=== PATIENT | female | born 1940 | race Caucasian/White ===

== ENCOUNTER 2019-02-19 11:10 | Day surgery (SDC) | payer MEDICARE, BC ==
[2019-02-17 10:33] VITALS: BMI 33.3
[~2019-02-19 11:10] MED LIST: CLINDAMYCIN 600 MG in SODIUM CHLORIDE 0.9% IRRIGATIO 250 ML IRRIGATION ONE; CLINDAMYCIN 900 MG in DEXTROSE 5% IN WATER 50 ML IVPB ONE; HYDROmorphone 0.5 MG/0.5 ML SYRINGE IVP PRN
[2019-02-19 12:25] LABS: Glucose,Whole Blood 98 mg/dL (75-99)
[2019-02-19] MEDS: SODIUM CHLORIDE 0.9% 1,000 ML IV SCH (12:25)
[2019-02-19 12:46] LABS: INR 2.5 (<1.2); Prothrombin Time 23.9 sec (9.0-12.0)
[2019-02-19] MEDS ORDERED: ISOPROTERENOL 250 MCG/1.25 ML SYR IV ONE (15:59)
[2019-02-19] MEDS ORDERED: MIDAZOLAM 2 MG/2 ML VIAL ONE (15:59)
[2019-02-19] MEDS ORDERED: fentaNYL (PF) 50 MCG/ML 2 ML AMP ONE (15:59)
[2019-02-19] MEDS ORDERED: PROPOFOL 10 MG/ML 20 ML VIAL IV ONE (15:59)
--- NOTE | 2019-02-19 16:07 | P.HPCAR ---
History of Present Illness This is Earline Daniels PA-C dictating an H&P on this patient The patient was interviewed and examined by me as well as by Dr. Del Cid Case discussed with Dr. Del Cid and he agrees with the plan of care IMPRESSION / ASSESSMENT: symptomatic frequent NSVT Hypertrophic cardiomyopathy CAD status post CABG Atrial fibrillation on Coumadin Hypertension Dyslipidemia Diabetes PLAN: Proceed with diagnostic EP study and further management as indicated based on findings HPI Patient is a 78-year-old female with a past medical history of CAD status post CABG, hypertrophic cardiomyopathy, atrial fibrillation, hypertension, dyslipidemia, and diabetes who presents for evaluation and management of NSVT. Patient has recurrent palpitations and underwent an event monitor which showed frequent episodes of nonsustained ventricular tachycardia of different morphologies. Her most recent stress test was negative for reversible ischemia. Her most recent echocardiogram showed EF 55%, moderate concentric hypertrophy, thickened intraventricular septum consistent with hypertrophic cardiomyopathy, hypokinesis of the inferior wall from the base to the mid wall. Patient seen and examined resting comfortably in bed. Denies any chest pain or shortness of breath. Has not had any palpitations on the last few days. No syncope. No re cent infections, fevers, chills, cough. She can lie flat comfortably, no orthopnea or PND. ROS: No fevers, chills or rigors, no cough, phlegm or expectoration, no nausea, vomiting or diarrhea, no hematuria, dysuria, no musculoskeletal complaints, no strokes or seizures, no skin lesions. EXAMINATION: Temperature 98.0F, pulse 64, respirations 16, blood pressure 13, oxygen saturation 97 room patient seen and examined resting comfortably in bed, in no acute distress Lungs clear to auscultation bilaterally. No wheezing, rhonchi or crackles Heart is regular, systolic murmur noted, no rubs or gallops No elevated JVD Trace lower extremity edema bilaterally Abdomen soft and nontender to palpation REVIEW OF LABS, ECG & MEDICAL DATA INR is therapeutic 2.5 Physical Exam Vitals: Vital Signs Temp Pulse Resp BP Pulse Ox 02/19/19 12:40 98.0 F 64 16 164/73 97 Past Medical History Past Medical History: Atrial Fibrillation, CVA/TIA, Diabetes Mellitus, Eye Disorder, Hyperlipidemia, Hypertension Additional Past Medical History / Comment(s): NEUROPATHY HANDS AND FEET. BLEEDING BEHIND HER EYES-SEEING A SPECIALIST. *SEE DR DEL CID'S H&P History of Any Multi-Drug Resistant Organisms: None Reported Past Surgical History: Cardiac Ablation, Cholecystectomy, Coronary Bypass/CABG, Hysterectomy Past Anesthesia/Blood Transfusion Reactions: No Reported Reaction Past Psychological History: No Psychological Hx Reported Smoking Status: Never smoker Past Alcohol Use History: None Reported Past Drug Use History: None Reported - Past Family History Brother(s) Family Medical History: Myocardial Infarction (VT) Additional Family Medical History / Comment(s): FATAL VT Mother Family Medical History: Coronary Artery Disease (CAD) Physical Examination Vital Signs Temp Pulse Resp BP Pulse Ox 02/19/19 12:40 98.0 F 64 16 164/73 97 Results Coagulation 02/19/19 Range/Units 12:15 PT 23.9 H (9.0-12.0) sec Current Medications Generic Name Dose Route Start Last Admin Trade Name Freq PRN Reason Stop Dose Admin Hydromorphone HCl 0.5 mg 02/18/19 21:05 Dilaudid IVP 02/19/19 21:06 Q5M PRN Pain Control Lactated Ringer's 1,000 mls @ 20 mls/hr 02/18/19 21:15 Lactated Ringers IV .Q24H BRUNILDA Sodium Chloride 1,000 mls @ 50 mls/hr 02/19/19 06:00 02/19/19 12:25 Saline 0.9% IV 0 mls .Q20H BRUNIDLA Administration
[2019-02-19] MEDS ORDERED: LIDOCAINE 1% INJ 10MG/ML (20 ML MDV) ONE (16:17)
[2019-02-19] MEDS ORDERED: LIDOCAINE 1% INJ 10MG/ML (20 ML MDV) SQ ONE (16:23)
[2019-02-19] MEDS ORDERED: ACETAMINOPHEN IV (For NPO) 1,000 MG in EMPTY BAG 1 BAG IVPB ONE (18:08)
[2019-02-19] MEDS ORDERED: ACETAMINOPHEN TAB 325 MG TAB PO PRN (18:08)
[2019-02-19] MEDS ORDERED: HYDROcodone/APAP 5-325MG 1 EACH TAB PO PRN (18:08)
[2019-02-19] MEDS: LACTATED RINGERS 1,000 ML IV SCH ×2 (18:57→21:15)
[2019-02-19 20:10] LABS: Glucose,Whole Blood 115 mg/dL (75-99)
[2019-02-19] MEDS: LISINOPRIL 20 MG TAB PO SCH (20:32)
[2019-02-19] MEDS ORDERED: ATORVASTATIN 80 MG TAB PO SCH (21:00)
[2019-02-19] MEDS ORDERED: INSULIN DETEMIR (LEVEMIR) 100 UNIT/ML SYR SQ SCH (21:00)
[2019-02-19] MEDS ORDERED: metFORMIN 500 MG TAB PO SCH (21:00)
[2019-02-19] MEDS: GABAPENTIN 100 MG CAP PO SCH (21:48)
[2019-02-20] MEDS: SODIUM CHLORIDE 0.9% 1,000 ML IV SCH (02:00)
[2019-02-20 03:28] LABS: Glucose,Whole Blood 42 mg/dL (75-99)
[2019-02-20 03:44] LABS: Glucose,Whole Blood 47 mg/dL (75-99)
[2019-02-20 04:00] LABS: Glucose,Whole Blood 81 mg/dL (75-99)
[2019-02-20 06:02] LABS: Glucose,Whole Blood 155 mg/dL (75-99)
--- NOTE | 2019-02-20 08:07 | CE ---
CARDIAC ELECTROPHYSIOLOGY REPORT This is a 78-year-old female who has hypertrophic cardiomyopathy, coronary artery disease, status post coronary artery bypass grafting, inferior wall SD, nonsustained ventricular tachycardia. She has had a long run of nonsustained ventricular tachycardia on Holter monitor. She was brought in for a diagnostic EP study and possible ICD implant in case of inducible ventricular tachyarrhythmia. Patient is brought to the EP lab in a fasting state. Written informed consent was obtained prior to the procedure. The right groin was prepped and draped as per protocol. Venous sheaths were placed in the right femoral vein. The veins were quite calcified. Three sheaths were placed via these 3 diagnostic catheters were placed in the high right atrium, His bundle and right ventricle, later at 2 sites the HRA catheter was moved into the RVOT and ventricular stimulation was performed from 2 sites. Baseline measurements were as follows: Sinus cycle length 918 milliseconds, QRS 86 milliseconds, UT 149 milliseconds and QT 390 milliseconds. AH interval 78 milliseconds, HV interval 39 milliseconds. Sinus node recovery times of 600, 500, and 400 milliseconds were 1096, 1216 and 1085 milliseconds. Corresponding corrected sinus node recovery times were within normal limits. AV node Wenckebach block in a mildly sedated state was 460 milliseconds. There was no evidence of slow pathway conduction, no delta waves noted. VA Wenckebach block 520 milliseconds. Ventricular extra stimulation was performed up to triple extrastimuli at 2 [address] trains from the RV apex. The burst stimulation was performed. This was repeated from the RVOT with up to triple extrastimuli at 2 [address] trains as well as burst stimulation. No sustained or nonsustained ventricular tachycardia was noted. Isuprel was started wide open and then at 2 mcg, burst stimulation was performed from both sites, ventricular extra stimulation, up to triple extra stimuli were performed from both sites. One ventricular triplet was noted. No other arrhythmias were noted. All catheters were removed at the end of the procedure and hemostasis was assured. RESULT: Diagnostic EP study revealing. 1. Normal sinus node function. 2. Mildly abnormal AV node function sedated state. 3. No inducible atrial arrhythmias. 4. No inducible ventricular arrhythmias despite a very detailed protocol from 2 sites in the right ventricle at two different drive trains, on and off Isuprel. PLAN: Maximize beta blockers. I have increased the dose of metoprolol succinate 200 mg p.o. daily now. MMODL / IJN: [id number] /
--- NOTE | 2019-02-20 08:17 | LTR ---
DATE OF SERVICE: 02/19/2019 RE: Hayley Castro. Dear Dr. Marx; Hayley Castro had a run of long nonsustained ventricular tachycardia on her Holter monitor. She has hypertrophic cardiomyopathy without any clear-cut LVOT gradient, but also has coronary artery disease with an inferior wall akinesis. She underwent a detailed ventricular stimulation protocol at EP study. No ventricular arrhythmias were induced. Therefore, I an recommending that we increase the dose of beta blockers to 100 mg p.o. daily and she will continue to follow up with you and I would recommend increasing the dose of metoprolol succinate to 100 mg p.o. daily at this time and observation. Thank you for entrusting me with the care of your patient. Warm Regards. Sincerely, MD LANE Merchant / REGINALDO: [id number] /
[2019-02-20] MEDS: GABAPENTIN 100 MG CAP PO SCH (08:35)
[2019-02-20] MEDS: LISINOPRIL 20 MG TAB PO SCH (08:35)
[2019-02-20 08:55] VITALS: TEMP 97.9
[2019-02-20] MEDS ORDERED: METOPROLOL SUCCINATE (ER) 100 MG TAB.ER.24H PO SCH (09:00)
[2019-02-20] MEDS ORDERED: metFORMIN 500 MG TAB PO SCH (09:00)
[2019-02-20] MEDS ORDERED: FERROUS SULFATE 325 MG TAB PO SCH (09:00)
[2019-02-20] MEDS ORDERED: ISOSORBIDE MONONITRATE ER 30 MG TAB.ER.24H PO SCH (09:00)
[2019-02-20] MEDS ORDERED: HYDROCHLOROTHIAZIDE 12.5 MG CAP PO SCH (09:00)
[2019-02-20] MEDS ORDERED: ASPIRIN 81 MG PO SCH (09:00)
[2019-02-20] MEDS ORDERED: amLODIPine 2.5 MG TAB PO SCH (09:00)
[2019-02-20 11:42] LABS: Glucose,Whole Blood 291 mg/dL (75-99)
[2019-02-20 14:10] VITALS: BP 165/74; PULSE 71; RESP 17
[2019-02-20] MEDS ORDERED: WARFARIN 3 MG TAB PO SCH (18:00)
== END 2019-02-20 14:04 | disposition home or self-care (01) ==
LOC: CATHEP 11:10 → 3SCARD 18:20 → CATHEP 02-20 14:04
PROVIDERS: ATTEND Internal Medicine Clinical Cardiac Electrophysiology
DX: I42.2 Other hypertrophic cardiomyopathy (principal); I47.2 Ventricular tachycardia; I48.91 Unspecified atrial fibrillation; I87.8 Other specified disorders of veins; I10 Essential (primary) hypertension; E78.5 Hyperlipidemia, unspecified; E11.42 Type 2 diabetes mellitus with diabetic polyneuropathy; Z95.1 Presence of aortocoronary bypass graft; H57.89 Other specified disorders of eye and adnexa; E66.9 Obesity, unspecified; Z68.34 Body mass index [BMI] 34.0-34.9, adult; I25.2 Old myocardial infarction; Z86.73 Personal history of transient ischemic attack (TIA), and cerebral infarction without residual deficits; Z90.49 Acquired absence of other specified parts of digestive tract; Z90.710 Acquired absence of both cervix and uterus; Z82.49 Family history of ischemic heart disease and other diseases of the circulatory system; I25.10 Atherosclerotic heart disease of native coronary artery without angina pectoris; Z79.01 Long term (current) use of anticoagulants; Z79.4 Long term (current) use of insulin; Z79.899 Other long term (current) drug therapy; Z88.0 Allergy status to penicillin
CPT/HCPCS: 93623; 93620; 85610; C1894; C1769 ×3; C1730 ×2; J2250; J2001; J3010; J2704

== ENCOUNTER → 2019-09-04 | Day surgery (SDC) | payer MEDICARE, BC ==
[2019-09-02 13:37] VITALS: BMI 33.3
[~2019-09-04] MED LIST changes: +ALPRAZolam 0.25 MG TAB PO PRN; +ALPRAZolam 0.5 MG TAB PO PRN; +ASPIRIN 325 MG TAB PO STA; +ASPIRIN 81 MG ONE; -CLINDAMYCIN 600 MG in SODIUM CHLORIDE 0.9% IRRIGATIO 250 ML IRRIGATION ONE; -CLINDAMYCIN 900 MG in DEXTROSE 5% IN WATER 50 ML IVPB ONE; -HYDROmorphone 0.5 MG/0.5 ML SYRINGE IVP PRN; +IOPAMIDOL-370 125ML BTL INJ ONE; +LIDOCAINE 1% INJ 10MG/ML (20 ML MDV) ONE; +LIDOCAINE 1% INJ 10MG/ML (20 ML MDV) SQ ONE; +NITROGLYCERIN SL TABS 0.4 MG TAB SUBLINGUAL PRN; +RX INFO: IV CONTRAST WAS GIVEN 1 EACH MISC MISCELLANE PRN; +SODIUM CHLORIDE 0.9% 1,000 ML IV SCH; +SODIUM CHLORIDE 0.9% 1,000 ML in EMPTY BAG 1 BAG IV ONE; +VERAPAMIL 2.5 MG/ML 2 ML AMP ONE; +fentaNYL (PF) 50 MCG/ML 2 ML AMP IVP ONE; +fentaNYL (PF) 50 MCG/ML 2 ML AMP ONE
[2019-09-04 07:05] LABS: Glucose,Whole Blood 178 mg/dL (75-99)
[2019-09-04 07:06] VITALS: RESP 18; TEMP 98.1
[2019-09-04 07:17] LABS: Basophils # (A) 0.1 k/uL (0-0.2); Basophils % (A) 1 %; Eosinophils # (A) 0.1 k/uL (0-0.7); Eosinophils % (A) 2 %; HCT 41.8 % (34.0-46.0); HGB 13.1 gm/dL (11.4-16.0); Lymphocytes # (A) 2.1 k/uL (1.0-4.8); Lymphocytes % (A) 25 %; MCH 28.6 pg (25.0-35.0); MCHC 31.3 g/dL (31.0-37.0); MCV 91.3 fL (80.0-100.0); Monocytes # (A) 0.5 k/uL (0-1.0); Monocytes % (A) 6 %; Neutrophils # (A) 5.3 k/uL (1.3-7.7); Neutrophils % (A) 64 %; Platelet Count 336 k/uL (150-450); RBC 4.58 m/uL (3.80-5.40); RDW 14.3 % (11.5-15.5); WBC 8.4 k/uL (3.8-10.6)
[2019-09-04 07:29] LABS: African American GFR (CKD) >90 (>60 ml/min/1.73 sqM); Anion Gap 8 mmol/L; Blood Urea Nitrogen 25 mg/dL (7-17); Calcium 9.7 mg/dL (8.4-10.2); Carbon Dioxide 28 mmol/L (22-30); Chloride 105 mmol/L (98-107); Glucose 189 mg/dL (74-99); Non-African American GFR(CKD) 80 (>60 ml/min/1.73 sqM); Sodium 141 mmol/L (137-145)
[2019-09-04 07:33] LABS: Prothrombin Time 10.3 sec (9.0-12.0)
--- NOTE | 2019-09-04 08:43 | P.CARDCATH ---
Date of Procedure: 09/04/19 Preoperative Diagnosis: Positive stress test and symptoms of shortness of breath and wide complex tachycardia Postoperative Diagnosis: Patent grafts with diffuse shinnecock disease Procedure(s) Performed: Left heart catheterization without left ventriculography. Selective injection of the 2 vein grafts and the GILBERT graft Description of Procedure: HISTORY: This is a 79-year-old female with history of diabetes, hypertension, ischemic heart disease and previous bypass surgery who has been experiencing shortness of breath and had episodes of wide-complex tachycardia. A stress test showed ischemia in the anterior wall. Patient is advised to have cardiac catheterization for definite diagnosis CONSENT:I have discussed the risks, benefits and alternative therapies for the above-mentioned procedure and for both sedation/analgesia as well as necessary blood product administration, if indicated, as they pertain to this patient. The patient has indicated understanding and acceptance of the risks and procedures discussed. PROCEDURE: Patient was brought to the lab in a fasting state. Patient was given some IV sedation. The right groin is infiltrated with lidocaine and right femoral artery was entered using Seldinger technique. A 6-Georgian catheter was left in place and selective coronary arteriography was performed. Patient tolerated the procedure well. Femoral angiogram was performed and manual compression was applied for hemostasis. No immediate complications were noted and patient was transferred to [facility] in a stable condition Conscious Sedation: Versed 0mg Fentanyl 25 g Duration 31minutes HEMODYNAMICS: Aortic pressure is about 160/70. Left ventricle end-diastolic pressure was 8-10. There is no gradient across the aortic valve SELECTIVE CORONARY ARTERIOGRAPHY: [] LEFT MAIN:. Short with a diffuse disease THE LEFT ANTERIOR DESCENDING CORONARY ARTERY: This is a moderate caliber vessel with a diffuse disease with total occluded in the prox imal portion THE LEFT CIRCUMFLEX AND IS CORONARY ARTERY: Moderate disease with a diffuse disease with a total occlusion of the OM branch and diffuse disease involving mid and distal circumflex THE RIGHT CORONARY ARTERY:. Normal dominant vessel and totally occluded The vein graft to the distal circumflex: This is patent at the proximal and distal anastomosis. The distal circumflex consists of the PDA branch and seemed to be free of occlusive disease. The vein graft to the OM branch of the circumflex: This is patent at the proximal and distal anastomosis. The OM branch. Appears to be free of any significant focal disease. The GILBERT graft to the LAD: This is patent throughout its length and also distal anastomosis. The LAD distal to the ostial circumflex appears to be free of any significant focal disease. There is diffuse plaque noticed . LEFT VENTRICULOGRAPHY: Not done FINAL IMPRESSION: Patent 2 vein grafts and also GILBERT graft. Diffusedly severe disease involving shinnecock vessels PLAN: Maximum medical therapy and this factor modification PROGNOSIS: Fair
[2019-09-04 15:54] VITALS: BP 172/76; PULSE 68
== END | disposition home or self-care (01) ==
LOC: CATHCVL 05:58
PROVIDERS: ATTEND Internal Medicine Cardiovascular Disease
DX: I25.10 Atherosclerotic heart disease of native coronary artery without angina pectoris (principal); I11.0 Hypertensive heart disease with heart failure; I50.9 Heart failure, unspecified; I25.82 Chronic total occlusion of coronary artery; I47.2 Ventricular tachycardia; I42.1 Obstructive hypertrophic cardiomyopathy; E78.00 Pure hypercholesterolemia, unspecified; R94.39 Abnormal result of other cardiovascular function study; E11.9 Type 2 diabetes mellitus without complications; Z95.5 Presence of coronary angioplasty implant and graft; Z95.1 Presence of aortocoronary bypass graft; E66.9 Obesity, unspecified; Z68.33 Body mass index [BMI] 33.0-33.9, adult; I25.2 Old myocardial infarction; Z79.01 Long term (current) use of anticoagulants; Z79.82 Long term (current) use of aspirin; Z79.4 Long term (current) use of insulin; Z79.899 Other long term (current) drug therapy; Z88.0 Allergy status to penicillin; Z88.8 Allergy status to other drugs, medicaments and biological substances
CPT/HCPCS: 93459; 80048; 85025; 85610; C1769 ×3; C1894; J2001; J3010; Q9967

== ENCOUNTER 2022-07-27 19:14 | Inpatient (IN) | payer MEDICARE, BC ==
[2022-07-27] MEDS ORDERED: SODIUM CHLORIDE 0.9% 1,000 ML IV STA (19:29)
[2022-07-27] MEDS ORDERED: ONDANSETRON 4 MG/2 ML VIAL IVP STA (19:29)
--- NOTE | 2022-07-27 19:55 | ED ---
Dizziness HPI - General Chief Complaint: Dizziness Stated Complaint: dizziness Time Seen by Provider: 07/27/22 19:28 Source: patient, RN notes reviewed, old records reviewed Mode of arrival: EMS Limitations: no limitations - History of Present Illness Initial Comments: This is a 82-year-old female Shazia today. Patient presents today for evaluation of complaints, weakness not feeling well decreased activity level. Patient states any activity that she does to results and significant exertional dyspnea. Patient also significant swelling of both legs worsen normal with more pain she does get pain with ambulation. Significant pain with ambulation which improves when she sits down arrests. Patient has also noticed that whenever she tries to walk she walks into mo admits significantly off-balance and occasional position change the room sepsis then. MD Complaint: dizziness, lightheadedness -: hour(s) Timing: gradual onset, awoke with symptoms Description: sense of movement, "room spinning" History of Same: No History of Trauma: No Severity: mild Improves With: remaining still Worsens With: movement Associated Symptoms: denies other symptoms - Related Data Home Medications Medication Instructions Recorded Confirmed Aspirin [Adult Low Dose Aspirin EC] 81 mg PO DAILY 02/17/19 07/27/22 Ferrous Sulfate [Iron] 325 mg PO DAILY 02/17/19 07/27/22 Gabapentin [Neurontin] 200 cap PO TID 02/17/19 07/27/22 Insulin Aspart [NovoLOG Flexpen] See Protocol SQ TID-W/MEALS 02/17/19 07/27/22 Insulin Degludec [Tresiba] 60 units SQ HS 02/17/19 07/27/22 Isosorbide Mononitrate ER [Imdur] 30 mg PO DAILY 02/17/19 07/27/22 Multivitamins, Thera [Multivitamin 1 tab PO DAILY 02/17/19 07/27/22 (formulary)] Rosuvastatin Calcium [Crestor] 40 mg PO HS 02/17/19 07/27/22 hydroCHLOROthiazide 12.5 mg PO DAILY 02/17/19 07/27/22 metFORMIN HCL 1,000 tab PO DAILY 02/17/19 07/27/22 Apixaban [Eliquis] 5 mg PO BID 07/27/22 07/27/22 Cyanocobalamin (Vitamin B-12) 1,000 mcg PO DAILY 07/27/22 07/27/22 [Vitamin B-12] Magnesium Oxide [Mag-Ox] 400 mg PO DAILY 07/27/22 07/27/22 Valsartan [Diovan] 160 mg PO BID 07/27/22 07/27/22 metFORMIN HCL [Glucophage] 500 mg PO HS 07/27/22 07/27/22 Previous Rx's Medication Instructions Recorded Metoprolol Succinate [Toprol XL] 100 mg PO DAILY #90 tab 02/19/19 Allergies Allergy/AdvReac Type Severity Reaction Status Date / Time ampicillin Allergy Rash/Hives Verified 07/27/22 22:12 Dgxhtaq-CCB-CcA Reductase Allergy Rash/Hives Verified 07/27/22 22:12 Inhibitor [Bxqxgsp-Pqd-Dle Reductase Inhibitor] Review of Systems ROS Statement: Those systems with pertinent positive or pertinent negative responses have been documented in the HPI. ROS Other: All systems not noted in ROS Statement are negative. Past Medical History Past Medical History: Atrial Fibrillation, Coronary Artery Disease (CAD), CVA/TIA, Diabetes Mellitus, Eye Disorder, Hyperlipidemia, Hypertension Additional Past Medical History / Comment(s): Neuropathy hands, feet. Heart murmur. c/o shortness of breath with little or no activity. Mild CVA x3 est, loss of peripheral vision lt eye. Bleeding behind eyes-sees a Retinal Dr. History of Any Multi-Drug Resistant Organisms: None Reported Past Surgical History: Cardiac Ablation, Cholecystectomy, Coronary Bypass/CABG, Heart Catheterization, Hysterectomy Additional Past Surgical History / Comment(s): Triple CABG 2014. x3. EP study 02/19/19. Past Anesthesia/Blood Transfusion Reactions: No Reported Reaction Past Psychological History: No Psychological Hx Reported Past Alcohol Use History: None Reported Past Drug Use History: None Reported - Past Family History Brother(s) Family Medical History: Myocardial Infarction ([place]) Additional Family Medical History / Comment(s): FATAL [place] Mother Family Medical History: Coronary Artery Disease (CAD) General Exam - General Exam Comments Initial Comments: Patient has persistent vertiginous symptoms here Limitations: no limitations General appearance: alert, in no apparent distress Head exam: Present: atraumatic, normocephalic, normal inspection Eye exam: Present: normal appearance, PERRL, EOMI, nystagmus. Absent: scleral icterus, conjunctival injection, periorbital swelling ENT exam: Present: normal exam, mucous membranes moist Neck exam: Present: normal inspection. Absent: tenderness, meningismus, lymphadenopathy Respiratory exam: Present: accessory muscle use, decreased breath sounds, prolonged expiratory. Absent: respiratory distress, wheezes, rales, rhonchi, stridor Cardiovascular Exam: Present: regular rate, normal rhythm, normal heart sounds. Absent: systolic murmur, diastolic murmur, rubs, gallop, clicks GI/Abdominal exam: Present: soft, normal bowel sounds. Absent: distended, tenderness, guarding, rebound, rigid Extremities exam: Present: normal inspection, full ROM, normal capillary refill. Absent: tenderness, pedal edema, joint swelling, calf tenderness Back exam: Present: normal inspection Neurological exam: Present: alert, oriented X3, CN II-XII intact Psychiatric exam: Present: normal affect, normal mood Skin exam: Present: warm, dry, intact, normal color. Absent: rash Course Vital Signs 07/27/22 07/27/22 07/27/22 19:18 19:22 20:22 Temperature 98.1 F 98 F Pulse Rate 66 76 78 Pulse Rate [ Sitting] Pulse Rate [ Standing] Pulse Rate [ Supine] Respiratory 16 16 20 Rate Blood Pressure 196/93 196/93 186/92 Blood Pressure [Sitting] Blood Pressure [Standing] Blood Pressure [Supine] O2 Sat by Pulse 95 96 98 Oximetry 07/27/22 07/27/22 07/28/22 21:00 23:50 00:40 Temperature Pulse Rate 78 80 Pulse Rate [ Sitting] Pulse Rate [ Standing] Pulse Rate [ Supine] Respiratory 16 14 17 Rate Blood Pressure 180/98 149/55 145/67 Blood Pressure [Sitting] Blood Pressure [Standing] Blood Pressure [Supine] O2 Sat by Pulse 98 95 93 L Oximetry 07/28/22 07/28/22 07/28/22 00:50 01:00 01:10 Temperature Pulse Rate 92 81 96 Pulse Rate [ Sitting] Pulse Rate [ Standing] Pulse Rate [ Supine] Respiratory 25 H 28 H 20 Rate Blood Pressure 145/67 145/67 145/67 Blood Pressure [Sitting] Blood Pressure [Standing] Blood Pressure [Supine] O2 Sat by Pulse Oximetry 07/28/22 07/28/22 07/28/22 01:20 01:30 01:40 Temperature Pulse Rate 80 77 81 Pulse Rate [ Sitting] Pulse Rate [ Standing] Pulse Rate [ Supine] Respiratory 19 24 10 L Rate Blood Pressure 145/67 145/67 145/67 Blood Pressure [Sitting] Blood Pressure [Standing] Blood Pressure [Supine] O2 Sat by Pulse Oximetry 07/28/22 07/28/22 07/28/22 01:50 02:00 02:10 Temperature Pulse Rate 76 85 75 Pulse Rate [ Sitting] Pulse Rate [ Standing] Pulse Rate [ Supine] Respiratory 22 12 20 Rate Blood Pressure 145/67 145/67 145/67 Blood Pressure [Sitting] Blood Pressure [Standing] Blood Pressure [Supine] O2 Sat by Pulse Oximetry 07/28/22 07/28/22 07/28/22 05:00 06:31 10:41 Temperature 98.6 F Pulse Rate 83 78 79 Pulse Rate [ Sitting] Pulse Rate [ Standing] Pulse Rate [ Supine] Respiratory 16 16 18 Rate Blood Pressure 136/74 144/80 117/57 Blood Pressure [Sitting] Blood Pressure [Standing] Blood Pressure [Supine] O2 Sat by Pulse 97 95 96 Oximetry 07/28/22 07/28/22 15:36 15:37 Temperature Pulse Rate Pulse Rate [ 83 Sitting] Pulse Rate [ 84 Standing] Pulse Rate [ 76 Supine] Respiratory 18 Rate Blood Pressure Blood Pressure 145/66 [Sitting] Blood Pressure 144/63 [Standing] Blood Pressure 159/67 [Supine] O2 Sat by Pulse Oximetry - Reevaluation(s) Reevaluation #1: 07/27/22 22:28 Medical record is reviewed Reevaluation #2: 07/27/22 22:28 No change in symptoms here in the ER Reevaluation #3: 07/27/22 22:28 Patient informed results and questions are answered Reevaluation #4: 07/27/22 22:28 Was pt. sent in by a medical professional or institution? @ -no Did you speak to anyone other than the patient for history? @ -no Did you review nursing and triage notes? @ -agree Were old charts reviewed? @ -no Differential Diagnosis? @ -prior EKG interpreted by me (3pts min.)? @ -yes X-rays interpreted by me (1pt min.)? @ -yes CT interpreted by me (1pt min.)? @ -no U/S interpreted by me (1pt. min.)? @ -no What testing was considered but not performed? (CT, X-rays, U/S, labs)? Why? @ -no What meds were considered but not given? Why? @ -no Did you discuss the management of the patient with other professionals? @ -no Did you reconcile home meds? @ -no Was smoking cessation discussed for >3mins.? @ -no Was critical care preformed (if so, how long)? @ -no Were there social determinants of health that impacted care today? How? (Homelessness, low income, unemployed, alcoholism, drug addiction, transportation, low edu. Level, literacy, decrease access to med. care, correction, rehab)? @ -no Was there de-escalation of care discussed even if they declined? (Discuss DNR or withdrawal of care, Hospice)? @ -no What co-morbidities impacted this encounter? (DM, HTN, Smoking, COPD, CAD, Cancer, CVA, Hep., AIDS, mental health diagnosis, sleep apnea, morbid obesity)? @ -none Was patient admitted / discharged? @ -admit Undiagnosed new problem with uncertain prognosis? @ -no Drug Therapy requiring intensive monitoring for toxicity (Heparin, Nitro, Insulin, Cardizem)? @ -no Were any procedures done? @ -no Diagnosis/symptom? @ -Vertigo,Weakness,UTI,CHF Acute, or Chronic, or Acute on Chronic? @ -acute Uncomplicated (without systemic symptoms) or Complicated (systemic symptoms)? @ -complicated Side effects of treatment? @ -no Exacerbation, Progression, or Severe Exacerbation] @ -no Poses a threat to life or bodily function? @ -no Reevaluation #5: 07/27/22 22:28 Differential Dizziness: Benign paroxysmal positional Vertigo, Menieres disease, otitis media, acoustic neuroma, vertebrobasilar insufficiency, cerebellar stroke, encephalitis, hypovolemic, arrhythmia, coronary artery syndrome, anemia, this is not meant to be an all-inclusive list Differential Dyspnea: Coronary syndrome, arrhythmia, tamponade, asthma, COPD, pulmonary embolism, pneumonia, pneumothorax, pulmonary effusion, anaphylaxis, diabetic ketoacidosis, flailed chest, pulmonary contusion, diaphragmatic rupture, anemia, neuromuscular, this is not meant to be an all-inclusive list. - Consultations Consultation #1: spoke with Dr. Mayank ac for admission EKG Findings - EKG Comments: EKG Findings:: EKG is sinus 80 OK 190 QRS 136 QTc 452 Medical Decision Making - Medical Decision Making 82 female to the emergency department for evaluation of dizziness lightheadedness and weakness. Vertiginous symptoms and CHF. Patient will be admitted for diuresis and monitor brain - Lab Data Result diagrams: 07/28/22 02:50 07/28/22 02:50 Lab Results 07/27/22 07/27/22 07/27/22 Range/Units 19:29 19:29 19:29 WBC 8.8 (3.8-10.6) k/uL RBC 3.98 (3.80-5.40) m/uL Hgb 11.9 (11.4-16.0) gm/dL Hct 36.4 (34.0-46.0) % MCV 91.6 (80.0-100.0) fL MCH 29.8 (25.0-35.0) pg MCHC 32.5 (31.0-37.0) g/dL RDW 14.8 (11.5-15.5) % Plt Count 279 (150-450) k/uL MPV 9.0 Neutrophils % 69 % Lymphocytes % 21 % Monocytes % 5 % Eosinophils % 1 % Basophils % 0 % Neutrophils # 6.1 (1.3-7.7) k/uL Lymphocytes # 1.8 (1.0-4.8) k/uL Monocytes # 0.5 (0-1.0) k/uL Eosinophils # 0.1 (0-0.7) k/uL Basophils # 0.0 (0-0.2) k/uL PT 10.4 (9.0-12.0) sec INR 1.0 (<1.2) APTT 21.3 L (22.0-30.0) sec Sodium 139 (137-145) mmol/L Potassium 4.4 (3.5-5.1) mmol/L Chloride 105 (98-107) mmol/L Carbon Dioxide 25 (22-30) mmol/L Anion Gap 9 mmol/L BUN 25 H (7-17) mg/dL Creatinine 0.77 (0.52-1.04) mg/dL Est GFR (CKD-EPI)AfAm 84 (>60 ml/min/1.73 sqM) Est GFR (CKD-EPI)NonAf 73 (>60 ml/min/1.73 sqM) Glucose 227 H (74-99) mg/dL Plasma Lactic Acid Kirit (0.7-2.0) mmol/L Calcium 9.2 (8.4-10.2) mg/dL Phosphorus 3.2 (2.5-4.5) mg/dL Magnesium 1.5 L (1.6-2.3) mg/dL Total Bilirubin 0.5 (0.2-1.3) mg/dL AST 23 (14-36) U/L ALT 20 (4-34) U/L Alkaline Phosphatase 88 (38-126) U/L Troponin I (0.000-0.034) ng/mL NT-Pro-B Natriuret Pep pg/mL Total Protein 7.2 (6.3-8.2) g/dL Albumin 3.6 (3.5-5.0) g/dL Urine Color Urine Appearance (Clear) Urine pH (5.0-8.0) Ur Specific [place] (1.001-1.035) Urine Protein (Negative) Urine Glucose (UA) (Negative) Urine Ketones (Negative) Urine Blood (Negative) Urine Nitrite (Negative) Urine Bilirubin (Negative) Urine Urobilinogen (<2.0) mg/dL Ur Leukocyte Esterase (Negative) Urine RBC (0-5) /hpf Urine WBC (0-5) /hpf Ur Squamous Epith Cells (0-4) /hpf Urine Bacteria (None) /hpf Urine Mucus (None) /hpf 07/27/22 07/27/22 07/27/22 Range/Units 19:29 19:29 19:29 WBC (3.8-10.6) k/uL RBC (3.80-5.40) m/uL Hgb (11.4-16.0) gm/dL Hct (34.0-46.0) % MCV (80.0-100.0) fL MCH (25.0-35.0) pg MCHC (31.0-37.0) g/dL RDW (11.5-15.5) % Plt Count (150-450) k/uL MPV Neutrophils % % Lymphocytes % % Monocytes % % Eosinophils % % Basophils % % Neutrophils # (1.3-7.7) k/uL Lymphocytes # (1.0-4.8) k/uL Monocytes # (0-1.0) k/uL Eosinophils # (0-0.7) k/uL Basophils # (0-0.2) k/uL PT (9.0-12.0) sec INR (<1.2) APTT (22.0-30.0) sec Sodium (137-145) mmol/L Potassium (3.5-5.1) mmol/L Chloride (98-107) mmol/L Carbon Dioxide (22-30) mmol/L Anion Gap mmol/L BUN (7-17) mg/dL Creatinine (0.52-1.04) mg/dL Est GFR (CKD-EPI)AfAm (>60 ml/min/1.73 sqM) Est GFR (CKD-EPI)NonAf (>60 ml/min/1.73 sqM) Glucose (74-99) mg/dL Plasma Lactic Acid Kirit 1.8 (0.7-2.0) mmol/L Calcium (8.4-10.2) mg/dL Phosphorus (2.5-4.5) mg/dL Magnesium (1.6-2.3) mg/dL Total Bilirubin (0.2-1.3) mg/dL AST (14-36) U/L ALT (4-34) U/L Alkaline Phosphatase (38-126) U/L Troponin I <0.012 (0.000-0.034) ng/mL NT-Pro-B Natriuret Pep 850 pg/mL Total Protein (6.3-8.2) g/dL Albumin (3.5-5.0) g/dL Urine Color Urine Appearance (Clear) Urine pH (5.0-8.0) Ur Specific [place] (1.001-1.035) Urine Protein (Negative) Urine Glucose (UA) (Negative) Urine Ketones (Negative) Urine Blood (Negative) Urine Nitrite (Negative) Urine Bilirubin (Negative) Urine Urobilinogen (<2.0) mg/dL Ur Leukocyte Esterase (Negative) Urine RBC (0-5) /hpf Urine WBC (0-5) /hpf Ur Squamous Epith Cells (0-4) /hpf Urine Bacteria (None) /hpf Urine Mucus (None) /hpf 07/27/22 Range/Units 20:33 WBC (3.8-10.6) k/uL RBC (3.80-5.40) m/uL Hgb (11.4-16.0) gm/dL Hct (34.0-46.0) % MCV (80.0-100.0) fL MCH (25.0-35.0) pg MCHC (31.0-37.0) g/dL RDW (11.5-15.5) % Plt Count (150-450) k/uL MPV Neutrophils % % Lymphocytes % % Monocytes % % Eosinophils % % Basophils % % Neutrophils # (1.3-7.7) k/uL Lymphocytes # (1.0-4.8) k/uL Monocytes # (0-1.0) k/uL Eosinophils # (0-0.7) k/uL Basophils # (0-0.2) k/uL PT (9.0-12.0) sec INR (<1.2) APTT (22.0-30.0) sec Sodium (137-145) mmol/L Potassium (3.5-5.1) mmol/L Chloride (98-107) mmol/L Carbon Dioxide (22-30) mmol/L Anion Gap mmol/L BUN (7-17) mg/dL Creatinine (0.52-1.04) mg/dL Est GFR (CKD-EPI)AfAm (>60 ml/min/1.73 sqM) Est GFR (CKD-EPI)NonAf (>60 ml/min/1.73 sqM) Glucose (74-99) mg/dL Plasma Lactic Acid Kirit (0.7-2.0) mmol/L Calcium (8.4-10.2) mg/dL Phosphorus (2.5-4.5) mg/dL Magnesium (1.6-2.3) mg/dL Total Bilirubin (0.2-1.3) mg/dL AST (14-36) U/L ALT (4-34) U/L Alkaline Phosphatase (38-126) U/L Troponin I (0.000-0.034) ng/mL NT-Pro-B Natriuret Pep pg/mL Total Protein (6.3-8.2) g/dL Albumin (3.5-5.0) g/dL Urine Color Colorless Urine Appearance Cloudy H (Clear) Urine pH 5.0 (5.0-8.0) Ur Specific [place] 1.005 (1.001-1.035) Urine Protein Trace H (Negative) Urine Glucose (UA) Trace H (Negative) Urine Ketones Negative (Negative) Urine Blood Moderate H (Negative) Urine Nitrite Negative (Negative) Urine Bilirubin Negative (Negative) Urine Urobilinogen <2.0 (<2.0) mg/dL Ur Leukocyte Esterase Large H (Negative) Urine RBC 4 (0-5) /hpf Urine WBC 178 H (0-5) /hpf Ur Squamous Epith Cells <1 (0-4) /hpf Urine Bacteria Many H (None) /hpf Urine Mucus Rare H (None) /hpf - Radiology Data Radiology results: report reviewed (CT brain is negative for acute disease chest x-rays positive for CHF), image reviewed Disposition Clinical Impression: Vertigo, CHF (congestive heart failure), Weakness, UTI (urinary tract infection) Disposition: ADMITTED IP TO THIS HOSP Is patient prescribed a controlled substance at d/c from ED?: No Time of Disposition: 21:50
[2022-07-27 20:33] LABS: Basophils % (A) 0 %; Eosinophils # (A) 0.1 k/uL (0-0.7); Eosinophils % (A) 1 %; HCT 36.4 % (34.0-46.0); HGB 11.9 gm/dL (11.4-16.0); Lymphocytes # (A) 1.8 k/uL (1.0-4.8); Lymphocytes % (A) 21 %; MCH 29.8 pg (25.0-35.0); MCHC 32.5 g/dL (31.0-37.0); MCV 91.6 fL (80.0-100.0); Monocytes # (A) 0.5 k/uL (0-1.0); Monocytes % (A) 5 %; Neutrophils # (A) 6.1 k/uL (1.3-7.7); Neutrophils % (A) 69 %; Platelet Count 279 k/uL (150-450); RBC 3.98 m/uL (3.80-5.40); RDW 14.8 % (11.5-15.5); WBC 8.8 k/uL (3.8-10.6)
[2022-07-27 20:51] LABS: Albumin 3.6 g/dL (3.5-5.0); Calcium 9.2 mg/dL (8.4-10.2); Magnesium 1.5 mg/dL (1.6-2.3); Phosphorus 3.2 mg/dL (2.5-4.5); Potassium 4.4 mmol/L (3.5-5.1); Total Bilirubin 0.5 mg/dL (0.2-1.3); Total Protein 7.2 g/dL (6.3-8.2)
--- NOTE | 2022-07-27 21:00 | CT ---
EXAMINATION TYPE: CT brain wo con CT DLP: 1143.4 mGycm, Automated exposure control for dose reduction was used. DATE OF EXAM: 07/27/2022 8:22 PM COMPARISON: None. CLINICAL INDICATION:Female, 82 years old with history of weakness, dizziness TECHNIQUE: Brain: Axial CT images of the brain were obtained with coronal and sagittal reformats created and rev iewed. Contrast used: None. Oral contrast used: None. FINDINGS: Brain: Extra-axial spaces: No abnormal extra-axial fluid collections. Ventricular system: Dilatation in proportion to cerebral atrophy. Cerebral parenchyma: Remote right occipital lobe injury. Remote Right basal ganglia lacunar injury. C erebral atrophy. No acute intraparenchymal hemorrhage or mass effect. The saravia-white junction is wel l differentiated. Scattered hypoattenuating areas are seen within the white matter. Cerebellum: Unremarkable. Mass effect: No evidence of midline shift. Intracranial vasculature: Atherosclerotic calcifications of the intracranial vessels. Soft tissues: Normal. Calvarium/osseous structures: No depressed skull fracture. Paranasal sinuses and mastoid air cells: Mild scattered paranasal sinus disease. Visualized orbits: Bilateral aphakia IMPRESSION: 1. No acute intracranial process. 2. Remote right occipital lobe and basal ganglia injuries. 3. Mild cerebral atrophy with proportional dilation to the ventricular system.
[2022-07-27 21:03] LABS: Partial Thromboplastin Time 21.3 sec (22.0-30.0)
[2022-07-27 21:35] LABS: Prothrombin Time 10.4 sec (9.0-12.0)
[2022-07-27 21:44] LABS: Appearance,Urine Cloudy (Clear); Bacteria,Urine Many /hpf; Bilirubin,Urine Negative (Negative); Blood,Urine Moderate (Negative); Color,Urine Colorless; Glucose,Urine (UA) Trace (Negative); Ketones,Urine Negative (Negative); Leukocyte Esterase,Urine Large (Negative); Mucus,Urine Rare /hpf; Nitrite,Urine Negative (Negative); Protein,Urine Trace (Negative); RBC,Urine 4 /hpf (0-5); Specific Gravity,Urine 1.005 (1.001-1.035); Squamous Epithelial Cell,Urine <1 /hpf (0-4); Urobilinogen,Urine <2.0 mg/dL (<2.0); WBC,Urine 178 /hpf (0-5)
--- NOTE | 2022-07-27 22:03 | XR ---
EXAMINATION TYPE: XR chest 1V DATE OF EXAM: 07/27/2022 9:59 PM COMPARISON: none TECHNIQUE: XR chest 1V Frontal view of the chest. CLINICAL INDICATION:Female, 82 years old with history of chf; FINDINGS: Lungs/Pleura: There is flattening of the diaphragm with increased lucency of the lungs. No evidence o f pneumothorax, pleural effusion or focal consolidation. Pulmonary vascularity: Pulmonary vascular congestion. Heart/mediastinum: Cardiomediastinal silhouette is enlarged and stable. Musculoskeletal: No acute osseous pathology. Midline sternotomy wires are noted. IMPRESSION: 1. Cardiomegaly and mild pulmonary vascular congestion. Correlate with BNP for congestive heart fail ure. 2. COPD changes.
[2022-07-27] MEDS ORDERED: ONDANSETRON 4 MG/2 ML VIAL IVP PRN (22:26)
[2022-07-27] MEDS ORDERED: NALOXONE 0.4 MG/ML 1 ML VIAL IV PRN (22:26)
[2022-07-27] MEDS ORDERED: ACETAMINOPHEN TAB 325 MG TAB PO PRN (22:26)
[2022-07-27] MEDS: SODIUM CHLORIDE 0.9% 1,000 ML IV SCH (23:32)
[2022-07-28 03:12] LABS: Basophils % (A) 0 %; Eosinophils # (A) 0.1 k/uL (0-0.7); Eosinophils % (A) 1 %; HCT 36.2 % (34.0-46.0); HGB 11.4 gm/dL (11.4-16.0); Hypochromasia Slight; Lymphocytes # (A) 2.4 k/uL (1.0-4.8); Lymphocytes % (A) 20 %; MCH 29.7 pg (25.0-35.0); MCHC 31.5 g/dL (31.0-37.0); MCV 94.2 fL (80.0-100.0); Mean Platelet Volume 8.2; Monocytes # (A) 0.6 k/uL (0-1.0); Monocytes % (A) 5 %; Neutrophils # (A) 8.8 k/uL (1.3-7.7); Neutrophils % (A) 72 %; Platelet Count 284 k/uL (150-450); RBC 3.84 m/uL (3.80-5.40); RDW 14.9 % (11.5-15.5); WBC 12.1 k/uL (3.8-10.6)
[2022-07-28 03:34] LABS: Albumin 3.4 g/dL (3.5-5.0); Calcium 8.4 mg/dL (8.4-10.2); Magnesium 1.3 mg/dL (1.6-2.3); Phosphorus 2.8 mg/dL (2.5-4.5); Potassium 4.3 mmol/L (3.5-5.1); Total Bilirubin 0.3 mg/dL (0.2-1.3); Total Protein 6.7 g/dL (6.3-8.2)
[2022-07-28 08:02] LABS: Glucose,Whole Blood 229 mg/dL (70-110)
[2022-07-28] MEDS: INSULIN ASPART (NovoLOG) 100 UNIT/ML VIAL SQ SCH ×3 (09:23→22:02)
[2022-07-28] MEDS: PANTOPRAZOLE 40 MG/10 ML VIAL IV SCH (09:27)
[2022-07-28] MEDS ORDERED: DEXTROSE 50% SYRINGE 50 ML IVP PRN ×2 (10:07)
[2022-07-28] MEDS ORDERED: amLODIPine 5 MG TAB PO SCH (10:15)
[2022-07-28] MEDS ORDERED: INSULIN NPH 100 UNIT/ML 10 ML VIAL SQ SCH (10:15)
[2022-07-28] MEDS: CYANOCOBALAMIN 500 MCG TAB PO SCH (10:37)
[2022-07-28] MEDS: MULTIVITAMINS, THERA 1 EACH TAB PO SCH (10:38)
[2022-07-28] MEDS: GABAPENTIN 100 MG CAP PO SCH ×3 (10:38→21:59)
[2022-07-28] MEDS: APIXABAN 5 MG TAB PO SCH ×2 (10:39→21:59)
[2022-07-28] MEDS: ISOSORBIDE MONONITRATE ER 30 MG TAB.ER.24H PO SCH (10:39)
[2022-07-28] MEDS: VALSARTAN 160 MG TAB PO SCH ×2 (10:40→22:00)
[2022-07-28] MEDS: ASPIRIN 81 MG PO SCH (10:40)
[2022-07-28] MEDS: METOPROLOL SUCCINATE (ER) 100 MG TAB.ER.24H PO SCH (10:40)
[2022-07-28 12:48] LABS: Glucose,Whole Blood 253 mg/dL (70-110)
--- NOTE | 2022-07-28 14:15 | P.CNNES ---
History of Present Illness Consult date: 07/28/22 Requesting physician: Harsh Garnica Reason for Consult: vertigo History of Present Illness: This is an 82-year-old woman with history of stroke, cardiology disease, hypertension, atrial fibrillation on eliquis status post ablation, CABG who presented emergency department because of a feeling dizzy and lightheaded. She stated that she noticed this yesterday when she woke up and felt dizzy with moving but resolved with rest. Denies any ringing in the ear hearing loss that's new. Denies any focal weakness, numbness, visual disturbance. She feels the dizzy lightheaded and this has improved today compared to yesterday. Per the patient nurse she's a walk-in around in the room without any issues. Patient is on Eliquis 5mg bid and ASA 81mg daily and denies missing her medication. Some other workup during his hospital visit consisted of: Initial blood pressure was 196/93 and patient had systolic blood pressure initially on presentation of 180s 190s has improved. Initial serum glucose is 227 currently it's in the running in the range of 200s to 300 Urinalysis seems possible suggestive of underlying urinary tract infection. CT of the head is reported as no acute intracranial processes. Remote right occipital lobe and basal ganglia injuries. Mild cerebellar atrophy with proportional dilation to the ventricular system. Personally reviewed the CT and I agreed the patient has an old right occipital as well as lacunar right basilar stroke. There is no acute subacute ischemia. As no intraparenchymal bleed. EKG is reported as sinus rhythm with the occasional PVC. Right bundle branch block. Review of Systems Review of system: The 12 point system was reviewed and apparent positive and negative per HPI. Past Medical History Past Medical History: Atrial Fibrillation, Coronary Artery Disease (CAD), CVA/TIA, Diabetes Mellitus, Eye Disorder, Hyperlipidemia, Hypertension Additional Past Medical History / Comment(s): Neuropathy hands, feet. Heart murmur. c/o shortness of breath with little or no activity. Mild CVA x3 est, loss of peripheral vision lt eye. Bleeding behind eyes-sees a Retinal DrJose History of Any Multi-Drug Resistant Organisms: None Reported Past Surgical History: Cardiac Ablation, Cholecystectomy, Coronary Bypass/CABG, Heart Catheterization, Hysterectomy Additional Past Surgical History / Comment(s): Triple CABG 2014. x3. EP study 02/19/19. Past Anesthesia/Blood Transfusion Reactions: No Reported Reaction Past Psychological History: No Psychological Hx Reported Past Alcohol Use History: None Reported Past Drug Use History: None Reported - Past Family History Brother(s) Family Medical History: Myocardial Infarction ([place]) Additional Family Medical History / Comment(s): FATAL [place] Mother Family Medical History: Coronary Artery Disease (CAD) Medications and Allergies Home Medications Medication Instructions Recorded Confirmed Type Aspirin [Adult Low Dose Aspirin EC] 81 mg PO DAILY 02/17/19 07/27/22 History Ferrous Sulfate [Iron] 325 mg PO DAILY 02/17/19 07/27/22 History Gabapentin [Neurontin] 200 cap PO TID 02/17/19 07/27/22 History Insulin Aspart [NovoLOG Flexpen] See Protocol SQ TID-W/MEALS 02/17/19 07/27/22 History Insulin Degludec [Tresiba] 60 units SQ HS 02/17/19 07/27/22 History Isosorbide Mononitrate ER [Imdur] 30 mg PO DAILY 02/17/19 07/27/22 History Multivitamins, Thera [Multivitamin 1 tab PO DAILY 02/17/19 07/27/22 History (formulary)] Rosuvastatin Calcium [Crestor] 40 mg PO HS 02/17/19 07/27/22 History hydroCHLOROthiazide 12.5 mg PO DAILY 02/17/19 07/27/22 History metFORMIN HCL 1,000 tab PO DAILY 02/17/19 07/27/22 History Metoprolol Succinate [Toprol XL] 100 mg PO DAILY #90 tab 02/19/19 07/27/22 Rx Apixaban [Eliquis] 5 mg PO BID 07/27/22 07/27/22 History Cyanocobalamin (Vitamin B-12) 1,000 mcg PO DAILY 07/27/22 07/27/22 History [Vitamin B-12] Magnesium Oxide [Mag-Ox] 400 mg PO DAILY 07/27/22 07/27/22 History Valsartan [Diovan] 160 mg PO BID 07/27/22 07/27/22 History amLODIPine [Norvasc] 5 mg PO DAILY 07/27/22 07/27/22 History metFORMIN HCL [Glucophage] 500 mg PO HS 07/27/22 07/27/22 History Allergies Allergy/AdvReac Type Severity Reaction Status Date / Time ampicillin Allergy Rash/Hives Verified 07/27/22 22:12 Qytkfrq-RKA-UoG Reductase Allergy Rash/Hives Verified 07/27/22 22:12 Inhibitor [Xfgqjfy-Tof-Ucb Reductase Inhibitor] Physical Examination - Vital Signs Vital Signs: Vital Signs Temp Pulse Resp BP Pulse Ox 07/28/22 10:41 79 18 117/57 96 07/28/22 06:31 78 16 144/80 95 07/28/22 05:00 98.6 F 83 16 136/74 97 07/28/22 02:10 75 20 145/67 07/28/22 02:00 85 12 145/67 07/28/22 01:50 76 22 145/67 07/28/22 01:40 81 10 L 145/07/28/22 01:30 77 24 145/67 07/28/22 01:20 80 19 145/67 07/28/22 01:10 96 20 145/67 07/28/22 01:00 81 28 H 145/07/28/22 00:50 92 25 H 145/07/28/22 00:40 17 145/67 93 L 07/27/22 23:50 80 14 149/55 95 07/27/22 21:00 78 16 180/98 98 07/27/22 20:22 98 F 78 20 186/92 98 07/27/22 19:22 76 16 196/93 96 07/27/22 19:18 98.1 F 66 16 196/93 95 Intake and Output 07/27/22 07/28/22 07/28/22 22:59 06:59 14:59 Other: Weight 90.718 kg GENERAL: The patient is lying in bed and is not in acute distress. CHEST: The heart rate is regular rate rhythm. No murmurs to auscultation. LUNG: Clear to auscultation bilaterally no wheezing noted throughout. Not labored breathing. ABDOMEN/GI: Bowel sounds present in all 4 quadrants. No tenderness to palpation throughout. NEUROLOGICAL: Higher mental function: The patient is awake, alert, oriented to self, place and time. Patient is following commands. No aphasia and no neglect. Cranial nerves: The pupils are round, equal and reactive to light and accommodation. Visual garcia left homonymous hemianposia. Extraocular movement is intact no nystagmus is noted. Facial sensation is normal to touch throughout. The facial strength is normal throughout. Hearing is mildly dereased bilaterally to hand rub. Tongue is midline and moved [id number] without any difficulty. No dysarthria is noted. Shoulder shrug is normal bilaterally. Motor: The strength is 5 over 5 throughout. Normal tone and bulk. Cerebellum: Normal finger to nose bilaterally. Sensation: Sensation is normal to touch throughout. Reflexes (right/left): 1+ throughout. Plantars are downgoing bilaterally. Results - Laboratory Findings CBC and BMP: 07/28/22 02:50 07/28/22 02:50 Abnormal Lab Findings: Abnormal Labs 07/27/22 07/27/22 07/27/22 19:29 19:29 20:33 WBC Neutrophils # APTT 21.3 L BUN 25 H Glucose 227 H POC Glucose (mg/dL) Magnesium 1.5 L Albumin Urine Appearance Cloudy H Urine Protein Trace H Urine Glucose (UA) Trace H Urine Blood Moderate H Ur Leukocyte Esterase Large H Urine WBC 178 H Urine Bacteria Many H Urine Mucus Rare H 07/28/22 07/28/22 07/28/22 02:50 02:50 07:50 WBC 12.1 H Neutrophils # 8.8 H APTT BUN 22 H Glucose 315 H POC Glucose (mg/dL) 229 H Magnesium 1.3 L Albumin 3.4 L Urine Appearance Urine Protein Urine Glucose (UA) Urine Blood Ur Leukocyte Esterase Urine WBC Urine Bacteria Urine Mucus 07/28/22 12:43 WBC Neutrophils # APTT BUN Glucose POC Glucose (mg/dL) 253 H Magnesium Albumin Urine Appearance Urine Protein Urine Glucose (UA) Urine Blood Ur Leukocyte Esterase Urine WBC Urine Bacteria Urine Mucus Assessment and Plan Assessment: Acute Vertigo: Appears more peripheral than central cause--no nystagmus, or any new focal deficits. 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 History of atrial fibrillation on eliquis s/p ablation History of CABG Diabetes mellitus Hyperlipidemia Underlying history of hypertension Underlying neuropathy History of coronary artery disease Plan: MRI brain is ordered by the ED team. If the patient does have a stroke then recommend stopping the aspirin since the patient would be considered as fail and start her on the Plavix 75 mg daily. Currently the patient is on home medication of aspirin 81 mg daily and Eliquis 5mg bid. Patient has ALLERGIES to statins 2-D echo was ordered. I ordered lipid panel Continue checks Cardiac monitoring Consulted PT and OT Recommend orthostatic vitals. Defer the rest of the medical management to primary team For DVT prophylaxis patient is on Eliquis. The plan is discussed with patient, her nurse and primary team. Thank you for the consultation. Dr. Cooper will start neurology service tomorrow A.M. Time with Patient: Greater than 30
--- NOTE | 2022-07-28 15:30 | P.CRDCN ---
History of Present Illness Consult date: 07/28/22 Consult reason: congestive heart failure History of present illness: This is Kamron Berry NP, I'm dictating on behalf of Dr. Del Cid's H&P and A&P The patient was interviewed and examined. HPI: Patient is a pleasant 82-year-old female who initially presented to hospital with complaints of dizziness and weakness. Patient states that at home she was having trouble walking appropriately, stating that she would stumble and almost fall at home. She reports that she had some significant dizziness at that time. Patient also reports that she has had shortness of breath with walking, but when asked further, she states this is no different than her usual baseline. Patient states that she has never been diagnosed with congestive heart failure to her knowledge. She states that at this time she has no shortness of breath, cough, dizziness, or heart palpitations. Patient has a significant past medical history for atrial fibrillation, coronary artery disease, CVA, diabetes, hyperlipidemia, and hypertension. Patient has a significant past surgical history that includes cardiac ablation, coronary artery bypass grafting, and heart catheterization. ROS: [No fever, chills, or rigors] [no cough, phlegm, or expectoration] [no nausea, vomiting, or diarrhea] [no hematuria, dysuria] [no musculoskelatal complaints] [no strokes or seizures] [no skin lesions] EXAMINATION: GENERAL: Well-appearing, well-nourished and in no acute distress. NECK: Supple without JVD or thyromegaly. LUNGS: Breath sounds clear to auscultation bilaterally. Respiration equal and unlabored. No wheezes, rales or rhonchi. HEART: Regular rate and rhythm without murmurs, rubs or gallops. S1 and S2 heard. EXTREMITIES: Normal range of motion, mild pitting edema in the bilateral feet. No clubbing or cyanosis. Peripheral pulses intact and strong. REVIEW OF LABS, ECG & MEDICAL DATA: LABS: White count 12.1, hemoglobin 11.4, platelets 284, sodium 140, potassium 4.3, chloride 105, BUN 22, creatinine 0.76, calcium 8.4, magnesium 1.3, troponin less than 0.0122, BNP 850 EKG: Normal sinus rhythm IMAGING: CT of the brain without contrast dated 07/27/2022 demonstrates no acute intracranial process, remote right occipital lobe and basal ganglia injuries, mi ld subtle cerebral atrophy with proportional dilatation to the ventricular system. Chest x-ray dated 07/27/2022 demonstrates cardiomegaly and mild pulmonary vascular congestion, correlate with BMP for congestive heart failure, COPD changes. VITALS: Temp 98.6, pulse 78, respirations 16, blood pressure 144/80, O2 saturation 95% on room air IMPRESSION: 1. Urinary tract infection 2. Hypertension 3. Mild pulmonary vascular congestion, noted on x-ray PLAN: Patient is known to us, and has had multiple previous echocardiograms completed in the office. No evidence of obvious congestive heart failure at that time. Symptoms are likely secondary to urinary tract infection. Echocardiogram was ordered by emergency department, pending read. We'll continue to follow the patient, pending the echocardiogram read. Thank you for the consult and allowing us to participate in the care of this patient. Past Medical History Past Medical History: Atrial Fibrillation, Coronary Artery Disease (CAD), CVA/TIA, Diabetes Mellitus, Eye Disorder, Hyperlipidemia, Hypertension Additional Past Medical History / Comment(s): Neuropathy hands, feet. Heart murmur. c/o shortness of breath with little or no activity. Mild CVA x3 est, loss of peripheral vision lt eye. Bleeding behind eyes-sees a Retinal Dr. History of Any Multi-Drug Resistant Organisms: None Reported Past Surgical History: Cardiac Ablation, Cholecystectomy, Coronary Bypass/CABG, Heart Catheterization, Hysterectomy Additional Past Surgical History / Comment(s): Triple CABG 2014. x3. EP study 02/19/19. Past Anesthesia/Blood Transfusion Reactions: No Reported Reaction Past Psychological History: No Psychological Hx Reported Past Alcohol Use History: None Reported Past Drug Use History: None Reported - Past Family History Brother(s) Family Medical History: Myocardial Infarction ([place]) Additional Family Medical History / Comment(s): FATAL [place] Mother Family Medical History: Coronary Artery Disease (CAD) Medications and Allergies Home Medications Medication Instructions Recorded Confirmed Type Aspirin [Adult Low Dose Aspirin EC] 81 mg PO DAILY 02/17/19 07/27/22 History Ferrous Sulfate [Iron] 325 mg PO DAILY 02/17/19 07/27/22 History Gabapentin [Neurontin] 200 cap PO TID 02/17/19 07/27/22 History Insulin Aspart [NovoLOG Flexpen] See Protocol SQ TID-W/MEALS 02/17/19 07/27/22 History Insulin Degludec [Tresiba] 60 units SQ HS 02/17/19 07/27/22 History Isosorbide Mononitrate ER [Imdur] 30 mg PO DAILY 02/17/19 07/27/22 History Multivitamins, Thera [Multivitamin 1 tab PO DAILY 02/17/19 07/27/22 History (formulary)] Rosuvastatin Calcium [Crestor] 40 mg PO HS 02/17/19 07/27/22 History hydroCHLOROthiazide 12.5 mg PO DAILY 02/17/19 07/27/22 History metFORMIN HCL 1,000 tab PO DAILY 02/17/19 07/27/22 History Metoprolol Succinate [Toprol XL] 100 mg PO DAILY #90 tab 02/19/19 07/27/22 Rx Apixaban [Eliquis] 5 mg PO BID 07/27/22 07/27/22 History Cyanocobalamin (Vitamin B-12) 1,000 mcg PO DAILY 07/27/22 07/27/22 History [Vitamin B-12] Magnesium Oxide [Mag-Ox] 400 mg PO DAILY 07/27/22 07/27/22 History Valsartan [Diovan] 160 mg PO BID 07/27/22 07/27/22 History amLODIPine [Norvasc] 5 mg PO DAILY 07/27/22 07/27/22 History metFORMIN HCL [Glucophage] 500 mg PO HS 07/27/22 07/27/22 History Allergies Allergy/AdvReac Type Severity Reaction Status Date / Time ampicillin Allergy Rash/Hives Verified 07/27/22 22:12 Gektuqe-HBT-KlB Reductase Allergy Rash/Hives Verified 07/27/22 22:12 Inhibitor [Hfkhmxl-Aco-Pbd Reductase Inhibitor] Physical Exam Vitals: Vital Signs Temp Pulse Resp BP Pulse Ox 07/28/22 10:41 79 18 117/57 96 07/28/22 06:31 78 16 144/80 95 07/28/22 05:00 98.6 F 83 16 136/74 97 07/28/22 02:10 75 20 145/67 07/28/22 02:00 85 12 145/67 07/28/22 01:50 76 22 145/67 07/28/22 01:40 81 10 L 145/67 07/28/22 01:30 77 24 14507/28/22 01:20 80 19 14507/28/22 01:10 96 20 14507/28/22 01:00 81 28 H 07/28/22 00:50 92 25 H 14507/28/22 00:40 17 145/67 93 L 07/27/22 23:50 80 14 149/55 95 07/27/22 21:00 78 16 180/98 98 07/27/22 20:22 98 F 78 20 186/92 98 07/27/22 19:22 76 16 196/93 96 07/27/22 19:18 98.1 F 66 16 196/93 95 Results 07/28/22 02:50 07/28/22 02:50 Cardiac Enzymes 07/27/22 07/27/22 07/27/22 Range/Units 19:29 19:29 23:56 AST 23 (14-36) U/L Troponin I <0.012 <0.012 (0.000-0.034) ng/mL 07/28/22 07/28/22 Range/Units 02:50 02:50 AST 21 (14-36) U/L Troponin I <0.012 (0.000-0.034) ng/mL Coagulation 07/27/22 Range/Units 19:29 PT 10.4 (9.0-12.0) sec APTT 21.3 L (22.0-30.0) sec CBC 07/27/22 07/28/22 Range/Units 19:29 02:50 WBC 8.8 12.1 H (3.8-10.6) k/uL RBC 3.98 3.84 (3.80-5.40) m/uL Hgb 11.9 11.4 (11.4-16.0) gm/dL Hct 36.4 36.2 (34.0-46.0) % Plt Count 279 284 (150-450) k/uL Comprehensive Metabolic Panel 07/27/22 07/28/22 Range/Units 19:29 02:50 Sodium 139 140 (137-145) mmol/L Potassium 4.4 4.3 (3.5-5.1) mmol/L Chloride 105 105 (98-107) mmol/L Carbon Dioxide 25 24 (22-30) mmol/L BUN 25 H 22 H (7-17) mg/dL Creatinine 0.77 0.76 (0.52-1.04) mg/dL Glucose 227 H 315 H (74-99) mg/dL Calcium 9.2 8.4 (8.4-10.2) mg/dL AST 23 21 (14-36) U/L ALT 20 19 (4-34) U/L Alkaline Phosphatase 88 82 (38-126) U/L Total Protein 7.2 6.7 (6.3-8.2) g/dL Albumin 3.6 3.4 L (3.5-5.0) g/dL Current Medications Generic Name Dose Route Start Last Admin Trade Name Freq PRN Reason Stop Dose Admin Acetaminophen 650 mg 07/27/22 22:26 Acetaminophen Tab 325 Mg Tab PO Q6HR PRN Mild Pain or Fever > 100.5 Apixaban 5 mg 07/28/22 10:15 07/28/22 10:39 Apixaban 5 Mg Tab PO 5 mg BID BRUNILDA Administration Protocol Aspirin 81 mg 07/28/22 10:15 07/28/22 10:40 Aspirin 81 Mg PO 81 mg DAILY BRUNILDA Administration Cyanocobalamin 1,000 mcg 07/28/22 10:15 07/28/22 10:37 Cyanocobalamin 500 Mcg Tab PO 1,000 mcg DAILY BRUNILDA Administration Dextrose/Water 50 ml 07/28/22 10:07 Dextrose 50% Syringe 50 Ml IVP PER PROTOCOL PRN Hypoglycemia Protocol Dextrose/Water 25 ml 07/28/22 10:07 Dextrose 50% Syringe 50 Ml IVP PER PROTOCOL PRN Hypoglycemia Protocol Ferrous Sulfate 325 mg 07/29/22 09:00 Ferrous Sulfate 325 Mg Tab PO DAILY BRUNILDA Gabapentin 200 mg 07/28/22 10:15 07/28/22 10:38 Gabapentin 100 Mg Cap PO 200 mg TID RBUNILDA Administration Ceftriaxone Sodium 2 gm/ 50 mls @ 100 mls/hr 07/28/22 18:00 Sodium Chloride IVPB Q24H BRUNILDA Protocol Sodium Chloride 1,000 mls @ 20 mls/hr 07/27/22 22:30 07/27/22 23:32 Saline 0.9% IV 20 mls/hr .Q24H BRUNILDA Administration Insulin Aspart 0 unit 07/28/22 12:30 07/28/22 12:48 Insulin Aspart (Novolog) 100 Unit/Ml Vial SQ 6 unit ACHS [facility] Administration Protocol Insulin Detemir 50 unit 07/28/22 21:00 Insulin Detemir (Levemir) 100 Unit/Ml Syr SQ HS [facility] Isosorbide Mononitrate 30 mg 07/28/22 10:15 07/28/22 10:39 Isosorbide Mononitrate Er 30 Mg Tab.Er.24h PO 30 mg DAILY [facility] Administration Magnesium Oxide 400 mg 07/29/22 09:00 Magnesium Oxide 400 Mg Tab PO DAILY [facility] Metformin HCl 1,000 mg 07/29/22 09:00 Metformin 500 Mg Tab PO DAILY [facility] Metformin HCl 500 mg 07/28/22 21:00 Metformin 500 Mg Tab PO HS [facility] Metoprolol Succinate 100 mg 07/28/22 10:15 07/28/22 10:40 Metoprolol Succinate (Er) 100 Mg Tab.Er.24h PO Not Given DAILY [facility] Multivitamins 1 each 07/28/22 10:15 07/28/22 10:38 Multivitamins, Thera 1 Each Tab PO 1 each DAILY [facility] Administration Naloxone HCl 0.2 mg 07/27/22 22:26 Naloxone 0.4 Mg/Ml 1 Ml Vial IV Q2M PRN Opioid Reversal Patient's Own ( 40 mg 07/28/22 21:00 Rosuvastatin Calcium PO [Crestor] 40 Mg HS [facility] Tablet) Ondansetron HCl 4 mg 07/27/22 22:26 Ondansetron 4 Mg/2 Ml Vial IVP Q8HR PRN Nausea And Vomiting Pantoprazole Sodium 40 mg 07/28/22 09:00 07/28/22 09:27 Pantoprazole 40 Mg/10 Ml Vial IV 40 mg DAILY [facility] Administration Valsartan 160 mg 07/28/22 10:15 07/28/22 10:40 Valsartan 160 Mg Tab PO Not Given BID [facility] 07/28/22 02:50 07/28/22 02:50
[2022-07-28 17:21] LABS: Glucose,Whole Blood 201 mg/dL (70-110)
--- NOTE | 2022-07-28 17:46 | CA ---
Transthoracic Echo Report Name: Hayley Castro Age: 82 Gender: F : 1940 Exam Date: 07/28/2022 08:11 Exam Location: [facility] Ht (in): 65 Wt (lb): 200 Ordering Physician: Harsh Garnica DO Attending/Referring Phys: [id number], Danika Curriculum Assistant Connie Sanchez RDCS Procedure CPT: Indications: chf Cardiac Hx: Technical Quality: Technically difficult study Contrast 1: Lumason Total Dose (mL): 4 Contrast 2: Total Dose (mL): MEASUREMENTS (Male / Female) Normal Values 2D ECHO LV Diastolic Diameter PLAX 3.5 cm 4.2 - 5.9 / 3.9 - 5.3 cm LV Systolic Diameter PLAX 2.4 cm IVS Diastolic Thickness 1.5 cm 0.6 - 1.0 / 0.6 - 0.9 cm LVPW Diastolic Thickness 1.7 cm 0.6 - 1.0 / 0.6 - 0.9 cm LV Relative Wall Thickness 0.9 RV Internal Dim ED PLAX 2.7 cm LVOT Diameter 2.4 cm LA Volume 108.4 cm??? 18 - 58 / 22 - 52 cm??? M-MODE Aortic Root Diameter MM 3.5 cm LA Systolic Diameter MM 3.0 cm LA Ao Ratio MM 0.9 AV Cusp Separation MM 0.7 cm DOPPLER AV Peak Velocity 188.7 cm/s AV Peak Gradient 14.2 mmHg AV Mean Velocity 137.9 cm/s AV Mean Gradient 8.3 mmHg AV Velocity Time Integral 43.6 cm LVOT Peak Velocity 144.9 cm/s LVOT Peak Gradient 8.4 mmHg LVOT Velocity Time Integral 37.5 cm LVOT Stroke Volume 168.8 cm??? LVOT Stroke Volume Index 85.3 ml/m??? LVOT Cardiac Index 6264.8 cm???/min???m??? AV Area Cont Eq vti 3.9 cm??? AV Area Cont Eq pk 3.5 cm??? MV Peak Velocity 175.2 cm/s MV Peak Gradient 12.3 mmHg MV Mean Velocity 131.6 cm/s MV Mean Gradient 7.4 mmHg MV Velocity Time Integral 53.6 cm MV Area PHT 2.5 cm??? Mitral E Point Velocity 157.9 cm/s Mitral A Point Velocity 189.8 cm/s Mitral E to A Ratio 0.8 MV Deceleration Time 300.5 ms FINDINGS Left Ventricle Left ventricular cavity size normal. Moderately increased left ventricular wall thickness. No obvious new regional wall motion abnormalities. Left ventricular ejection fraction is estimated at 50-55 %. Abnormal (paradoxical) septal motion consistent with postoperative state. Right Ventricle Normal right ventricular size and function. Right ventricular systolic pressure within normal limits. Right Atrium Right atrium not well visualized. Left Atrium Severely increased left atrial volume. Mildly increased left atrial area. Mitral Valve Mild mitral stenosis. Mitral valve thickened. Severe mitral annular calcification. [id number] mitral regurgitation. Aortic Valve Thickened aortic valve without stenosis. Aortic valve sclerosis. Tricuspid Valve Structurally normal tricuspid valve. Mild tricuspid regurgitation. Pulmonic Valve Structurally normal pulmonic valve. Mild pulmonic regurgitation. Pericardium No pericardial effusion. Aorta Normal size aortic root and proximal ascending aorta. CONCLUSIONS LVH with preserved systolic function Degenerative mitral valve with mitral calcification and 2+ mitral regurgitation [id number] aortic stenosis, prosthetic Previewed by: Dr. Slick Del Cid MD (Electronically Signed) Final Date: 28 Jul 2022 17:45
[2022-07-28 19:52] LABS: Glucose,Whole Blood 344 mg/dL (70-110)
[2022-07-28] MEDS ORDERED: MELATONIN 3 MG TABLET PO PRN (20:05)
[2022-07-28] MEDS ORDERED: CALCIUM CARBONATE 500 MG CHEWABLE PO PRN (20:05)
[2022-07-28] MEDS ORDERED: LACTULOSE 20 GM/30 ML CUP PO PRN (20:05)
[2022-07-28] MEDS ORDERED: LORazepam 0.5 MG TAB PO PRN (20:05)
--- NOTE | 2022-07-28 20:07 | P.HPIM ---
History of Present Illness H&P Date: 07/28/22 Chief Complaint: Dizzy This is a pleasant 10-year-old patient who follows with Dr. Justin Marx. 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 Patient for about 2 weeks have been having episodes on and off getting dizzy. Yesterday his symptoms became more persistent. Dizzy when she walks. Intended to follow the right side. No change in her speech. No headache. No nausea vomiting. No change in her vision. Denies any fever and chills. Patient has chronic urinary frequency due to bladder dysfunction. Also has underlying anxiety. Initial computed tomography scan of the ER was negative. Review of systems: GEN.: Tired EYES: Loss of peripheral vision in the left eye HEENT: As above NECK: None RESPIRATORY: None CARDIOVASCULAR: None GASTROINTESTINAL: None GENITOURINARY: Chronic urinary frequency. MUSCULOSKELETAL: Arthritis LYMPHATICS: None HEMATOLOGICAL: None PSYCHIATRY: None NEUROLOGICAL: As above Past medical history to include: Atrial fibrillation, CAD with bypass in 2014, mild CVA 3, diabetes, hypertension, hyperlipidemia, peripheral neuropathy, loss of peripheral vision in the left eye. Rectal hemorrhage, cardiac ablation Social history: Does use a walker. Lives alone. No alcohol or smoking. Physical examination: VITAL SIGNS: Afebrile, 83, 16, 136/74, 97% room air GENERAL: BMI 34.7, declining but awake comfortable. EYES: Pupils equal. Conjunctiva normal. HEENT: External appearance of nose and ears normal, oral cavity grossly normal. NECK: JVD not raised; masses not palpable. HEART: First and second heart sounds are normal; no edema. LUNGS: Respiratory rate normal; clear to auscultation. ABDOMEN: Soft, nontender, liver spleen not palpable, no masses palpable. PSYCH: Alert and oriented x3; mood and affect normal. MUSCULOSKELETAL:No Clubbing/cyanosis;muscles-grossly intact. UA NEUROLOGICAL: Cranial nerves grossly intact; no facial asymmetry, power and sensation grossly intact. No nystagmus. Possible mild dysdiadochokinesia. No pass pointing LYMPHATICS: No lymph nodes palpable in the axilla and neck INVESTIGATIONS, reviewed in the clinical context: White count 12.1 hemoglobin 11.4 platelets 284 sodium 140 potassium 4.3 BUN 22 creatinine 0.76 Troponin I less than 0.012 EKG tracing personally reviewed by me-normal sinus rhythm. Right bundle branch block. PVC. Chest x-ray film personally reviewed by me-no obvious infiltrate. Questionable venous prominence. Some hyperinflation 2-D echocardiogram: EF 50-55%. Moderate left ventricle wall thickness. Severe mitral annular calcification. Mild to moderate MR. Aortic valve sclerosis. Computed tomography scan brain without contrast: Remote right occipital lobe and basal ganglia injuries. Mild cerebral atrophy. Assessment and plan: -Possible subacute cerebellar stroke. Peripheral vestibular component possible Patient's had 2 weeks of intermittent symptoms of dizziness. Much worse since yesterday. Patient is tending to fall on the right side while walking. Mild dysdiadochokinesia. Urine checks. Neurology consulted. MRI of the brain.. -Diabetes mellitus type 2 on oral hypoglycemic Levemir 50 units. Follow Accu-Cheks. Metformin. -Hyperlipidemia Crestor -Essential hypertension Toprol-XL. Diovan 160 mg twice a day, amlodipine 5 mg a day -Paroxysmal atrial fibrillation, currently in sinus rhythm Toprol-XL 100 mg a day. Eliquis -Diabetic peripheral neuropathy Neurontin 200 mg 3 times a day -Vitamin B-12 deficiency Vitamin B12 thousand micrograms a day Care was discussed with the patient. MRI of the brain. Neurology consulted. Past Medical History Past Medical History: Atrial Fibrillation, Coronary Artery Disease (CAD), CVA/TIA, Diabetes Mellitus, Eye Disorder, Hyperlipidemia, Hypertension Additional Past Medical History / Comment(s): Neuropathy hands, feet. Heart murmur. c/o shortness of breath with little or no activity. Mild CVA x3 est, loss of peripheral vision lt eye. Bleeding behind eyes-sees a Retinal Dr. History of Any Multi-Drug Resistant Organisms: None Reported Past Surgical History: Cardiac Ablation, Cholecystectomy, Coronary Bypass/CABG, Heart Catheterization, Hysterectomy Additional Past Surgical History / Comment(s): Triple CABG 2015. x3. EP study 02/19/19. Past Anesthesia/Blood Transfusion Reactions: No Reported Reaction Past Psychological History: No Psychological Hx Reported Past Alcohol Use History: None Reported Past Drug Use History: None Reported - Past Family History Brother(s) Family Medical History: Myocardial Infarction ([place]) Additional Family Medical History / Comment(s): FATAL [place] Mother Family Medical History: Coronary Artery Disease (CAD) Medications and Allergies Home Medications Medication Instructions Recorded Confirmed Type Aspirin [Adult Low Dose Aspirin EC] 81 mg PO DAILY 02/17/19 07/27/22 History Ferrous Sulfate [Iron] 325 mg PO DAILY 02/17/19 07/27/22 History Gabapentin [Neurontin] 200 cap PO TID 02/17/19 07/27/22 History Insulin Aspart [NovoLOG Flexpen] See Protocol SQ TID-W/MEALS 02/17/19 07/27/22 History Insulin Degludec [Tresiba] 60 units SQ HS 02/17/19 07/27/22 History Isosorbide Mononitrate ER [Imdur] 30 mg PO DAILY 02/17/19 07/27/22 History Multivitamins, Thera [Multivitamin 1 tab PO DAILY 02/17/19 07/27/22 History (formulary)] Rosuvastatin Calcium [Crestor] 40 mg PO HS 02/17/19 07/27/22 History hydroCHLOROthiazide 12.5 mg PO DAILY 02/17/19 07/27/22 History metFORMIN HCL 1,000 tab PO DAILY 02/17/19 07/27/22 History Metoprolol Succinate [Toprol XL] 100 mg PO DAILY #90 tab 02/19/19 07/27/22 Rx Apixaban [Eliquis] 5 mg PO BID 07/27/22 07/27/22 History Cyanocobalamin (Vitamin B-12) 1,000 mcg PO DAILY 07/27/22 07/27/22 History [Vitamin B-12] Magnesium Oxide [Mag-Ox] 400 mg PO DAILY 07/27/22 07/27/22 History Valsartan [Diovan] 160 mg PO BID 07/27/22 07/27/22 History amLODIPine [Norvasc] 5 mg PO DAILY 07/27/22 07/27/22 History metFORMIN HCL [Glucophage] 500 mg PO HS 07/27/22 07/27/22 History Allergies Allergy/AdvReac Type Severity Reaction Status Date / Time ampicillin Allergy Rash/Hives Verified 07/27/22 22:12 [id number] Reductase Allergy Rash/Hives Verified 07/27/22 22:12 Inhibitor [Azlecxk-Qjv-Pjb Reductase Inhibitor] Physical Exam Vitals: Vital Signs Temp Pulse Resp BP Pulse Ox 07/28/22 06:31 78 16 144/80 95 07/28/22 05:00 98.6 F 83 16 136/74 97 07/28/22 02:10 75 20 145/07/28/22 02:00 85 12 07/28/22 01:50 76 22 07/28/22 01:40 81 10 L 07/28/22 01:30 77 24 14507/28/22 01:20 80 19 14507/28/22 01:10 96 20 07/28/22 01:00 81 28 H 07/28/22 00:50 92 25 H 07/28/22 00:40 17 145/67 93 L 07/27/22 23:50 80 14 149/55 95 07/27/22 21:00 78 16 180/98 98 07/27/22 20:22 98 F 78 20 186/92 98 07/27/22 19:22 76 16 196/93 96 07/27/22 19:18 98.1 F 66 16 196/93 95 Intake and Output 07/27/22 07/28/22 07/28/22 22:59 06:59 14:59 Other: Weight 90.718 kg Results CBC & Chem 7: 07/28/22 02:50 07/28/22 02:50 Labs: Abnormal Lab Results - Last 24 Hours (Table) 07/27/22 07/27/22 07/27/22 Range/Units 19:29 19:29 20:33 WBC (3.8-10.6) k/uL Neutrophils # (1.3-7.7) k/uL APTT 21.3 L (22.0-30.0) sec BUN 25 H (7-17) mg/dL Glucose 227 H (74-99) mg/dL POC Glucose (mg/dL) (70-110) mg/dL Magnesium 1.5 L (1.6-2.3) mg/dL Albumin (3.5-5.0) g/dL Urine Appearance Cloudy H (Clear) Urine Protein Trace H (Negative) Urine Glucose (UA) Trace H (Negative) Urine Blood Moderate H (Negative) Ur Leukocyte Esterase Large H (Negative) Urine WBC 178 H (0-5) /hpf Urine Bacteria Many H (None) /hpf Urine Mucus Rare H (None) /hpf 07/28/22 07/28/22 07/28/22 Range/Units 02:50 02:50 07:50 WBC 12.1 H (3.8-10.6) k/uL Neutrophils # 8.8 H (1.3-7.7) k/uL APTT (22.0-30.0) sec BUN 22 H (7-17) mg/dL Glucose 315 H (74-99) mg/dL POC Glucose (mg/dL) 229 H (70-110) mg/dL Magnesium 1.3 L (1.6-2.3) mg/dL Albumin 3.4 L (3.5-5.0) g/dL Urine Appearance (Clear) Urine Protein (Negative) Urine Glucose (UA) (Negative) Urine Blood (Negative) Ur Leukocyte Esterase (Negative) Urine WBC (0-5) /hpf Urine Bacteria (None) /hpf Urine Mucus (None) /hpf
[2022-07-28] MEDS ORDERED: metFORMIN 500 MG TAB PO SCH (21:00)
[2022-07-28] MEDS ORDERED: INSULIN DETEMIR (LEVEMIR) 100 UNIT/ML SYR SQ SCH (21:00)
[2022-07-28] MEDS ORDERED: PATIENT'S OWN (Rosuvastatin Calcium [Crestor] 40 MG Tablet) PO SCH (21:00)
[2022-07-29] MEDS: SODIUM CHLORIDE 0.9% 1,000 ML IV SCH (02:01)
[2022-07-29 07:28] LABS: Glucose,Whole Blood 74 mg/dL (70-110)
[2022-07-29 07:33] LABS: Chol/HDL Ratio 3.84 Ratio; LDL Cholesterol,Calculated 73.7 mg/dL (0.0-131.0)
[2022-07-29] MEDS: INSULIN ASPART (NovoLOG) 100 UNIT/ML VIAL SQ SCH ×2 (08:03→13:52)
[2022-07-29 08:06] VITALS: BP 133/61; PULSE 78; RESP 16; TEMP 98.2
[2022-07-29] MEDS: ISOSORBIDE MONONITRATE ER 30 MG TAB.ER.24H PO SCH (08:30)
[2022-07-29] MEDS: APIXABAN 5 MG TAB PO SCH (08:30)
[2022-07-29] MEDS: GABAPENTIN 100 MG CAP PO SCH (08:30)
[2022-07-29] MEDS: MULTIVITAMINS, THERA 1 EACH TAB PO SCH (08:31)
[2022-07-29] MEDS: CYANOCOBALAMIN 500 MCG TAB PO SCH (08:31)
[2022-07-29] MEDS: PANTOPRAZOLE 40 MG/10 ML VIAL IV SCH (08:31)
[2022-07-29] MEDS: ASPIRIN 81 MG PO SCH (08:31)
[2022-07-29] MEDS: VALSARTAN 160 MG TAB PO SCH (08:34)
[2022-07-29] MEDS: METOPROLOL SUCCINATE (ER) 100 MG TAB.ER.24H PO SCH (08:34)
[2022-07-29] MEDS ORDERED: FERROUS SULFATE 325 MG TAB PO SCH (09:00)
[2022-07-29] MEDS ORDERED: FUROSEMIDE 20 MG TAB PO SCH (09:00)
[2022-07-29] MEDS ORDERED: MAGNESIUM OXIDE 400 MG TAB PO SCH (09:00)
[2022-07-29] MEDS ORDERED: metFORMIN 500 MG TAB PO SCH (09:00)
[2022-07-29 11:48] LABS: Glucose,Whole Blood 203 mg/dL (70-110)
--- NOTE | 2022-07-29 12:43 | P.PN ---
Subjective Progress Note Date: 07/29/22 Patient initially seen by Dr. Davie Coronado. Please refer to his note for details. Patient is a 82-year-old female came with dizziness. Patient has history of atrial fibrillation, currently on Eliquis, also on aspirin. Her symptoms had improved. Patient also has an acute UTI. Patient tells me that she started having dizziness off and on about 2 years ago. The first time was the longest, lasted for 3 days. It was felt to be related to urinary or problem. She then had other episodes of vertigo but did not last too long. Her current episode started on Saturday at 9 AM after she had breakfast when everything started spinning. She felt it was in earlier, but was concerned if she was having a stroke, therefore came to the ER. The symptoms lasted for Saturday, and then was gone by yesterday. Today she feels fine. She wants to go home. Some other workup during his hospital visit consisted of: Initial blood pressure was 196/93 and patient had systolic blood pressure initially on presentation of 180s 190s has improved. Initial serum glucose is 227 currently it's in the running in the range of 200s to 300 Urinalysis seems possible suggestive of underlying urinary tract infection. CT of the head is reported as no acute intracranial processes. Remote right occipital lobe and basal ganglia injuries. Mild cerebellar atrophy with proportional dilation to the ventricular system. Personally reviewed the CT and I agreed the patient has an old right occipital as well as lacunar right basilar stroke. There is no acute subacute ischemia. As no intraparenchymal bleed. EKG is reported as sinus rhythm with the occasional PVC. Right bundle branch block. Objective - Vital Signs Vital signs: Vital Signs Temp 98.2 F 07/29/22 07:23 Pulse 78 07/29/22 07:23 Resp 16 07/29/22 08:00 BP 133/61 07/29/22 07:23 Pulse Ox 95 07/29/22 07:23 FiO2 Intake & Output 07/28/22 07/29/22 07/29/22 18:59 06:59 18:59 Intake Total 240 Balance 240 Weight 94.5 kg Intake: Oral 240 Other: Voiding Method Toilet # Voids 2 3 # Bowel Movements 0 - Exam Patient's mental status, speech and language functions are normal. Cranial ne rves are normal. No ataxia. Sensations equal. Muscle strength normal. - Labs CBC & Chem 7: 07/28/22 02:50 07/28/22 02:50 Labs: Abnormal Lab Results - Last 24 Hours (Table) 07/28/22 07/28/22 07/28/22 Range/Units 12:43 15:18 17:19 POC Glucose (mg/dL) 253 H 201 H (70-110) mg/dL HDL Cholesterol 35.90 L (40.00-60.00) mg/dL 07/28/22 07/29/22 Range/Units 19:48 11:47 POC Glucose (mg/dL) 344 H 203 H (70-110) mg/dL HDL Cholesterol (40.00-60.00) mg/dL Assessment and Plan Assessment: Acute Vertigo: Appears more peripheral than central cause--no nystagmus, or any new focal deficits. Likely related to either acute UTI, or uncontrolled blood p ressure. Vertigo resolved. 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 History of atrial fibrillation on eliquis s/p ablation History of CABG Diabetes mellitus Hyperlipidemia Underlying history of hypertension Underlying neuropathy History of coronary artery disease Plan: Patient's vertigo has resolved. Continue aspirin 81 mg daily and Eliquis 5mg bid. 2-D echo revealed severe increased left atrial volume, moderate concentric LVH, with EF 50-55%. Mild mitral stenosis, severe mitral annular calcification, with mild to moderate MR. Lipid panel with cholesterol 138, LDL 73, HDL 35, triglycerides 142. Patient ALLERGIC to statins. Lipids are fairly well controlled. Cardiac monitoring Consulted PT and OT Limited orthostatics were negative. Defer the rest of the medical management to primary team For DVT prophylaxis patient is on Eliquis. Optimize control of blood pressure. Blood pressure now well controlled. Treatment of possible UTI as per IM. Neurologically clear for discharge.
--- NOTE | 2022-07-29 14:11 | P.PN ---
Subjective Progress Note Date: 07/29/22 This is Kamron Berry NP, I'm dictating on behalf of Dr. Del Cid's H&P and A&P. Patient was interviewed and examined. Patient is a pleasant 82-year-old female who presented with dizziness and weakness. Patient was found with a UTI in ER. Today patient reports feeling ok. She denies shortness of breath. Swelling in her legs is the same as yesterday. No chest pain or palpitations reported. Echo completed yesterday shows a preserved EF with some altered wall motion consisted with surgical intervention. Patient had triple bypass surgery in 2014. GENERAL: Well-appearing, well-nourished and in no acute distress. NECK: Supple without JVD or thyromegaly. LUNGS: Breath sounds clear to auscultation bilaterally. Respiration equal and unlabored. No wheezes, rales or rhonchi. HEART: Regular rate and rhythm without murmurs, rubs or gallops. S1 and S2 heard. EXTREMITIES: Normal range of motion, no edema. No clubbing or cyanosis. Peripheral pulses intact and strong. VITALS: Temp 98.2, pulse 78, respirations 16, blood pressure 133/61, O2 saturation 95% on room air TELEMETRY: Normal sinus rhythm LABS: Reviewed, no new labs since yesterday IMPRESSION: 1. UTI 2. Vertigo 3. History CABG PLAN: Continue previously prescribed home cardiac medications Start Lasix 20mg PO daily Further management per internal medicine No further recommendations from a cardiac standpoint Objective - Vital Signs Vital signs: Vital Signs Temp 98.2 F 07/29/22 07:23 Pulse 78 07/29/22 07:23 Resp 16 07/29/22 07:23 BP 133/61 07/29/22 07:23 Pulse Ox 95 07/29/22 07:23 FiO2 Intake & Output 07/28/22 07/29/22 07/29/22 18:59 06:59 18:59 Intake Total 240 Balance 240 Weight 94.5 kg Intake: Oral 240 Other: # Voids 2 3 # Bowel Movements 0 - Labs CBC & Chem 7: 07/28/22 02:50 07/28/22 02:50 Labs: Abnormal Lab Results - Last 24 Hours (Table) 07/28/22 07/28/22 07/28/22 Range/Units 12:43 15:18 17:19 POC Glucose (mg/dL) 253 H 201 H (70-110) mg/dL HDL Cholesterol 35.90 L (40.00-60.00) mg/dL 07/28/22 Range/Units 19:48 POC Glucose (mg/dL) 344 H (70-110) mg/dL HDL Cholesterol (40.00-60.00) mg/dL
--- NOTE | 2022-07-29 16:50 | P.DS ---
Providers Date of admission: 07/27/22 22:26 Expected date of discharge: 07/29/22 Attending physician: Jose R Talley Consults: 07/27/22 22:26 Consult Physician Routine Consulting Provider: Molly Correa Consult Reason/Comments: chf Do you want consulting provider notified?: Yes Consult Physician Routine Consulting Provider: Davie Coronado Consult Reason/Comments: vertigo Do you want consulting provider notified?: Yes Primary care physician: Justin Marx [facility] Course: Chief Complaint: Dizzy This is a pleasant 10-year-old patient who follows with Dr. Justin Marx. 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 Patient for about 2 weeks have been having episodes on and off getting dizzy. Yesterday his symptoms became more persistent. Dizzy when she walks. Intended to follow the right side. No change in her speech. No headache. No nausea vomiting. No change in her vision. Denies any fever and chills. Patient has chronic urinary frequency due to bladder dysfunction. Also has underlying anxiety. Initial computed tomography scan of the ER was negative. July 29: Patient feeling well. Symptoms resolved. Seen by Dr. Adams from neurology. MRI not indicated. Alexander to be peripheral vestibular dysfunction/vestibulitis. Patient ambulating. Patient does not have a UTI. Asymptomatic bacteriuria. Discussed with Dr. Adams. Discussed with patient. Discussion and discharge planning more than 35 minutes Past medical history to include: Atrial fibrillation, CAD with bypass in 2015, mild CVA 3, diabetes, hypertension, hyperlipidemia, peripheral neuropathy, loss of peripheral vision in the left eye. Rectal hemorrhage, cardiac ablation Social history: Does use a walker. Lives alone. No alcohol or smoking. Physical examination: VITAL SIGNS: At 8.2, 78, 16, 133/61, 95% room air GENERAL: BMI 34.7, comfortable EYES: Pupils equal. Conjunctiva normal. HEENT: External appearance of nose and ears normal, oral cavity grossly normal. NECK: JVD not raised; masses not palpable. HEART: First and second heart sounds are normal; no edema. LUNGS: Respiratory rate normal; clear to auscultation. ABDOMEN: Soft, nontender, liver spleen not palpable, no masses palpable. PSYCH: Alert and oriented x3; mood and affect normal. MUSCULOSKELETAL:No Clubbing/cyanosis;muscles-grossly intact. UA NEUROLOGICAL: Unremarkable INVESTIGATIONS, reviewed in the clinical context: LDL 73 White count 12.1 hemoglobin 11.4 platelets 284 sodium 140 potassium 4.3 BUN 22 creatinine 0.76 Troponin I less than 0.012 EKG tracing personally reviewed by me-normal sinus rhythm. Right bundle branch block. PVC. Chest x-ray film personally reviewed by me-no obvious infiltrate. Questionable venous prominence. Some hyperinflation 2-D echocardiogram: EF 50-55%. Moderate left ventricle wall thickness. Severe mitral annular calcification. Mild to moderate MR. Aortic valve sclerosis. Computed tomography scan brain without contrast: Remote right occipital lobe and basal ganglia injuries. Mild cerebral atrophy. Assessment and plan: -Acute vestibulitis. Resolved Cleared by neurology for discharge. -Diabetes mellitus type 2 on oral hypoglycemic Tressba. Metformin. -Hyperlipidemia Crestor -Essential hypertension Toprol-XL. Diovan 160 mg twice a day, amlodipine 5 mg a day -Paroxysmal atrial fibrillation, currently in sinus rhythm Toprol-XL 100 mg a day. Eliquis -Diabetic peripheral neuropathy Neurontin 200 mg 3 times a day -Vitamin B-12 deficiency Vitamin B12 thousand micrograms a day Disposition: Home Plan - Discharge Summary Discharge Rx Participant: No New Discharge Prescriptions: Continue Ferrous Sulfate [Iron] 325 mg PO DAILY Aspirin [Adult Low Dose Aspirin EC] 81 mg PO DAILY hydroCHLOROthiazide 12.5 mg PO DAILY Gabapentin [Neurontin] 200 cap PO TID metFORMIN HCL 1,000 tab PO DAILY Rosuvastatin Calcium [Crestor] 40 mg PO HS Multivitamins, Thera [Multivitamin (formulary)] 1 tab PO DAILY Isosorbide Mononitrate ER [Imdur] 30 mg PO DAILY Insulin Degludec [Tresiba] 60 units SQ HS Insulin Aspart [NovoLOG Flexpen] See Protocol SQ TID-W/MEALS Metoprolol Succinate [Toprol XL] 100 mg PO DAILY #90 tab Magnesium Oxide [Mag-Ox] 400 mg PO DAILY metFORMIN HCL [Glucophage] 500 mg PO HS Valsartan [Diovan] 160 mg PO BID Cyanocobalamin (Vitamin B-12) [Vitamin B-12] 1,000 mcg PO DAILY Apixaban [Eliquis] 5 mg PO BID Discontinued amLODIPine [Norvasc] 5 mg PO DAILY Discharge Medication List Aspirin [Adult Low Dose Aspirin EC] 81 mg PO DAILY 02/17/19 [History] Ferrous Sulfate [Iron] 325 mg PO DAILY 02/17/19 [History] Gabapentin [Neurontin] 200 cap PO TID 02/17/19 [History] Insulin Aspart [NovoLOG Flexpen] See Protocol SQ TID-W/MEALS 02/17/19 [History] Insulin Degludec [Tresiba] 60 units SQ HS 02/17/19 [History] Isosorbide Mononitrate ER [Imdur] 30 mg PO DAILY 02/17/19 [History] Multivitamins, Thera [Multivitamin (formulary)] 1 tab PO DAILY 02/17/19 [History] Rosuvastatin Calcium [Crestor] 40 mg PO HS 02/17/19 [History] hydroCHLOROthiazide 12.5 mg PO DAILY 02/17/19 [History] metFORMIN HCL 1,000 tab PO DAILY 02/17/19 [History] Metoprolol Succinate [Toprol XL] 100 mg PO DAILY #90 tab 02/19/19 [Rx] Apixaban [Eliquis] 5 mg PO BID 07/27/22 [History] Cyanocobalamin (Vitamin B-12) [Vitamin B-12] 1,000 mcg PO DAILY 07/27/22 [History] Magnesium Oxide [Mag-Ox] 400 mg PO DAILY 07/27/22 [History] Valsartan [Diovan] 160 mg PO BID 07/27/22 [History] metFORMIN HCL [Glucophage] 500 mg PO HS 07/27/22 [History] Follow up Appointment(s)/Referral(s): Justin Marx MD [Primary Care Provider] - 1-2 days Patient Instructions/Handouts: Urinary Tract Infection in Women (DC), Vertigo (DC), Weakness (DC) Activity/Diet/Wound Care/Special Instructions: FOLLOW UP DIRECTED, SOONER IF PROBLEMS OR CONCERNS. Discharge Disposition: HOME SELF-CARE
== END 2022-07-29 14:28 | disposition home or self-care (01) | DRG 690 ==
LOC: EC 19:14 → 5NMEDONC 22:26
PROVIDERS: ADMIT Hospitalist; ATTEND Hospitalist
DX: N39.0 Urinary tract infection, site not specified (principal); I48.0 Paroxysmal atrial fibrillation; I45.10 Unspecified right bundle-branch block; E11.42 Type 2 diabetes mellitus with diabetic polyneuropathy; E53.8 Deficiency of other specified B group vitamins; E78.5 Hyperlipidemia, unspecified; F41.9 Anxiety disorder, unspecified; H83.09 Labyrinthitis, unspecified ear; I11.0 Hypertensive heart disease with heart failure; I25.10 Atherosclerotic heart disease of native coronary artery without angina pectoris; H35.62 Retinal hemorrhage, left eye; I50.9 Heart failure, unspecified; H54.62 Unqualified visual loss, left eye, normal vision right eye; Z79.01 Long term (current) use of anticoagulants; Z79.4 Long term (current) use of insulin; Z79.82 Long term (current) use of aspirin; Z79.84 Long term (current) use of oral hypoglycemic drugs; Z79.899 Other long term (current) drug therapy; Z82.49 Family history of ischemic heart disease and other diseases of the circulatory system; Z86.73 Personal history of transient ischemic attack (TIA), and cerebral infarction without residual deficits; Z95.1 Presence of aortocoronary bypass graft; Z28.311 Partially vaccinated for COVID-19; Z28.21 Immunization not carried out because of patient refusal; Z88.0 Allergy status to penicillin; Z88.8 Allergy status to other drugs, medicaments and biological substances; Z60.2 Problems related to living alone; Z91.81 History of falling
CPT/HCPCS: 36415; 70450; 71045; 80053; 80061; 81001; 83605; 83735; 83880; 84100; 84484; 85025; 85610; 85730; 93005; 93306; 96361; 96365; 96375; 99285

== ENCOUNTER 2024-03-19 19:27 | Emergency (ER) | payer MEDICARE, BC ==
[2024-03-19 19:34] VITALS: RESP 18
--- NOTE | 2024-03-19 20:09 | ED ---
Eye Problem HPI - General Chief complaint: Eye Problems Stated complaint: R eye, post-op comp Time Seen by Provider: 03/19/24 20:08 Source: patient, family, RN notes reviewed Mode of arrival: wheelchair Limitations: no limitations - History of Present Illness Initial comments: 83-year-old female presented to ER for evaluation of right eye pain. Son, at bedside, is providing most of HPI given patient's pain. He reports for the past 2 weeks patient has been having an ulcer to her right eye. She has been following up with [facility], Dr. Madrigal. They have been doing ointments and hydrating drops with improvement of ulcer. He states today patient had amniotic membrane patch placed for improved healing. This was around 4 PM. Patient states since then she has been having extreme pain to the right eye and has been unable to open her eye. Patient reports when she opens her left eye she has a shooting pain in her right. She denies any injuries or traumas. Patient is unknown until revision as she is unwilling to open her eyes given pain. She has not taken anything for pain at this time. Son states patient has increased pressures in bilateral eyes and history of bleeding behind the eye for which she has received intraocular injections in the past. No other complaints. - Related Data Home Medications Medication Instructions Recorded Confirmed Aspirin [Adult Low Dose Aspirin EC] 81 mg PO DAILY 02/17/19 07/27/22 Ferrous Sulfate [Iron] 325 mg PO DAILY 02/17/19 07/27/22 Gabapentin [Neurontin] 200 cap PO TID 02/17/19 07/27/22 Insulin Aspart [NovoLOG Flexpen] See Protocol SQ TID-W/MEALS 02/17/19 07/27/22 Insulin Degludec [Tresiba] 60 units SQ HS 02/17/19 07/27/22 Isosorbide Mononitrate ER [Imdur] 30 mg PO DAILY 02/17/19 07/27/22 Multivitamins, Thera [Multivitamin 1 tab PO DAILY 02/17/19 07/27/22 (formulary)] Rosuvastatin Calcium [Crestor] 40 mg PO HS 02/17/19 07/27/22 hydroCHLOROthiazide 12.5 mg PO DAILY 02/17/19 07/27/22 metFORMIN HCL 1,000 tab PO DAILY 02/17/19 07/27/22 Apixaban [Eliquis] 5 mg PO BID 07/27/22 07/27/22 Cyanocobalamin (Vitamin B-12) 1,000 mcg PO DAILY 07/27/22 07/27/22 [Vitamin B-12] Magnesium Oxide [Mag-Ox] 400 mg PO DAILY 07/27/22 07/27/22 Valsartan [Diovan] 160 mg PO BID 07/27/22 07/27/22 metFORMIN HCL [Glucophage] 500 mg PO HS 07/27/22 07/27/22 Previous Rx's Medication Instructions Recorded Metoprolol Succinate [Toprol XL] 100 mg PO DAILY #90 tab 02/19/19 Allergies Allergy/AdvReac Type Severity Reaction Status Date / Time ampicillin Allergy Rash/Hives Verified 03/19/24 19:35 Mcnnhlg-KMB-GjQ Reductase Allergy Rash/Hives Verified 03/19/24 19:35 Inhibitor [Ssrheqe-Syl-Oqr Reductase Inhibitor] Review of Systems ROS Statement: Those systems with pertinent positive or pertinent negative responses have been documented in the HPI. ROS Other: All systems not noted in ROS Statement are negative. Past Medical History Past Medical History: Atrial Fibrillation, Coronary Artery Disease (CAD), CVA/TIA, Diabetes Mellitus, Eye Disorder, Hyperlipidemia, Hypertension Additional Past Medical History / Comment(s): Neuropathy hands, feet. Heart murmur. c/o shortness of breath with little or no activity. Mild CVA x3 est, loss of peripheral vision lt eye. Bleeding behind eyes-sees a Retinal Dr. History of Any Multi-Drug Resistant Organisms: None Reported Past Surgical History: Cardiac Ablation, Cholecystectomy, Coronary Bypass/CABG, Heart Catheterization, Hysterectomy Additional Past Surgical History / Comment(s): Triple CABG 2014. x3. EP study 02/19/19. Past Anesthesia/Blood Transfusion Reactions: No Reported Reaction Past Psychological History: No Psychological Hx Reported Smoking Status: Never smoker Past Alcohol Use History: None Reported Past Drug Use History: None Reported - Past Family History Brother(s) Family Medical History: Myocardial Infarction (MT) Additional Family Medical History / Comment(s): FATAL [place] Mother Family Medical History: Coronary Artery Disease (CAD) General Exam - General Exam Comments Initial Comments: Visual Physical Exam Vital signs reviewed General: Well-appearing, nontoxic, no acute distress. Head: Normocephalic, atraumatic Eyes: Patient sitting with eyes closed ENT: Airway patent Chest: Nonlabored breathing Skin: No visual rash, normal skin tone Neuro: Alert and oriented 3 Musculoskeletal: No gross abnormalities Limitations: no limitations General appearance: alert, in no apparent distress Eye exam: Present: PERRL, EOMI Pupils: Present: normal accommodation, other (White plastic noted on right eye. Patient unwilling to voluntarily open eye. After FB removal, fluorescein stain negative for acute uptake. Pressure OD 13.) Respiratory exam: Present: normal lung sounds bilaterally. Absent: respiratory distress, wheezes, rales, rhonchi, stridor Cardiovascular Exam: Present: regular rate, normal rhythm, normal heart sounds. Absent: systolic murmur, diastolic murmur, rubs, gallop, clicks Extremities exam: Present: normal inspection, full ROM, normal capillary refill. Absent: tenderness, pedal edema, joint swelling, calf tenderness Neurological exam: Present: alert, oriented X3, CN II-XII intact Skin exam: Present: warm, dry, intact, normal color. Absent: rash Course Vital Signs 03/19/24 03/19/24 19:32 23:07 Temperature 97.4 F L 97.6 F Pulse Rate 78 87 Respiratory 18 18 Rate Blood Pressure 186/69 133/79 O2 Sat by Pulse 96 98 Oximetry - Reevaluation(s) Reevaluation #1: 03/19/24 21:18 Case discussed with patient's corrections caseworker, Dr. Madrigal, who advised on removing aminotic membrane if pain in tolerable. Procedures - Forgein Body Removal Eye Site: Right Anesthetic Used: Proparacaine Foreign Body Suspected: Other (Amniotic membrane) Remaining Debris: No Patient Tolerated: well Medical Decision Making - Medical Decision Making I performed the quick note portion of this chart. Electronically signed by Dillon Merida PA-C Was pt. sent in by a medical professional or institution ([facility], [facility], urgent care, hospital, or usp...) When possible be specific @ -No Did you speak to anyone other than the patient for history (EMS, parent, family, police, friend...)? What history was obtained from this source @ -Patient's son, at bedside, aiding in HPI and past medical history. Did you review nursing and triage notes (agree or disagree)? Why? @ -I reviewed and agree with nursing and triage notes Were old charts reviewed (outside hosp., previous admission, EMS record, old EKG, old radiological studies, urgent care reports/EKG's, usp records)? Report findings @ -No old charts were reviewed Differential Diagnosis (chest pain, altered mental status, abdominal pain women, abdominal pain men, vaginal bleeding, weakness, fever, dyspnea, syncope, headache, dizziness, GI bleed, back pain, seizure, CVA, palpatations, mental health, musculoskeletal)? @ -Corneal abrasion, ocular foreign body, hyphema, conjunctivitis, globe rupture, acute angle-closure glaucoma this list is not meant to be all-inclusive EKG interpreted by me (3pts min.). @ -None done X-rays interpreted by me (1pt min.). @ -None done CT interpreted by me (1pt min.). @ -None done U/S interpreted by me (1pt. min.). @ -None done What testing was considered but not performed or refused? (CT, X-rays, U/S, labs)? Why? @ -None What meds were considered but not given or refused? Why? @ -None Did you discuss the management of the patient with other professionals (professionals i.e. , PA, [facility], lab, RT, psych nurse, social worker clinical, banquet food server, teacher, civil preparedness officer, bilingual case manager)? Give summary @ -Yes, case discussed with Dr. Madrigal, ophthalmology, he advised on removal of amniotic membrane lens as patient is having uncontrollable pain. Was smoking cessation discussed for >3mins.? @ -No Was critical care preformed (if so, how long)? @ -No Were there social determinants of health that impacted care today? How? (Homelessness, low income, unemployed, alcoholism, drug addiction, transportation, low edu. Level, literacy, decrease access to med. care, [facility], rehab)? @ -No Was there de-escalation of care discussed even if they declined (Discuss DNR or withdrawal of care, Hospice)? DNR status @ -No What co-morbidities impacted this encounter? (DM, HTN, Smoking, COPD, CAD, Cancer, CVA, ARF, Chemo, Hep., AIDS, mental health diagnosis, sleep apnea, morbid obesity)? @ -History of corneal ulcer Was patient admitted / discharged? Hospital course, mention meds given and route, prescriptions, significant lab abnormalities, going to OR and other pertinent info. @ -Discharge. 83-year-old female presented to the ER for evaluation of right eye pain status post amniotic membrane lines placed today. Upon examination, history and physical exam completed. Patient is unwilling to open bilateral eyes secondary to pain. Given recent procedure case was discussed with patient's corrections caseworker, Dr. Madrigal, who advised on removal of amniotic membrane lens. Patient's eye was numbed with proparacaine and amniotic lens removed with forceps. Upon removal patient had immediate relief of discomfort and was able to open bilateral eyes. Pupils equal round and reactive with intact extraocular motions. No hyphema. Fluorescein stain and pressures were obtained at that time. Fluorescein stain negative for acute uptake. Pressure OD 13. Patient started on Tobrex eyedrops for infection prophylaxis. Tetanus UTD. I discussed with patient and her son to call Dr. Madrigal's office tomorrow morning for further evaluation and instructions, they are agreeable for this. Patient is stable for discharge at this time. Strict return parameters discussed. Patient discharged in stable condition with follow-up to PCP. Patient verbally expressed understanding and agreement with care plan. Case discussed with ED attending, Dr. Chao. Undiagnosed new problem with uncertain prognosis? @ -No Drug Therapy requiring intensive monitoring for toxicity (Heparin, Nitro, Insulin, Cardizem)? @ -No Were any procedures done? @ -No Diagnosis/symptom? @ -Ocular foreign body/removal amniotic membrane lens Acute, or Chronic, or Acute on Chronic? @ -Acute Uncomplicated (without systemic symptoms) or Complicated (systemic symptoms)? @ -Uncomplicated Side effects of treatment? @ -No Exacerbation, Progression, or Severe Exacerbation? @ -No Poses a threat to life or bodily function? How? (Chest pain, [place], MT, pneumonia, PE, COPD, DKA, ARF, appy, cholecystitis, CVA, Diverticulitis, Homicidal, Suicidal, threat to staff... and all critical care pts) @ -No Disposition Clinical Impression: Intraocular foreign body Disposition: HOME SELF-CARE Condition: Stable Additional Instructions: Call 's office tomorrow for follow-up and further instructions. Patient sent home on Tobrex eyedrops for infection prevention. 2 drops in right eye 4 times a day for 5 days. Return to the ER for any new or worsening concerns. Is patient prescribed a controlled substance at d/c from ED?: No Referrals: Justin Marx MD [Primary Care Provider] - 1-2 days Pepe Madrigal MD [STAFF PHYSICIAN] - 1-2 days Time of Disposition: 22:18
[2024-03-19] MEDS: FLUORESCEIN STRIPS 1 MG STRIP RIGHT EYE ONE (20:24)
[2024-03-19] MEDS: PROPARACAINE 0.5% OPHTH DROPS 15 ML BTL RIGHT EYE STA (20:24)
[2024-03-19] MEDS: TOBRAMYCIN 0.3% OPHTH DROPS 5 ML BTL RIGHT EYE STA ×2 (22:27→23:05)
[2024-03-19 23:08] VITALS: BP 133/79; PULSE 87; TEMP 97.6
== END 2024-03-19 23:15 | disposition home or self-care (01) ==
LOC: EC 19:27
DX: S05.51XA Penetrating wound with foreign body of right eyeball, initial encounter (principal); Z88.0 Allergy status to penicillin; Z88.8 Allergy status to other drugs, medicaments and biological substances; Z85.840 Personal history of malignant neoplasm of eye; E11.40 Type 2 diabetes mellitus with diabetic neuropathy, unspecified; E78.5 Hyperlipidemia, unspecified; I10 Essential (primary) hypertension; I25.10 Atherosclerotic heart disease of native coronary artery without angina pectoris; W44.9XXA Unspecified foreign body entering into or through a natural orifice, initial encounter
CPT/HCPCS: 99283